=== PATIENT | male | born 1940 | race Caucasian/White ===

== ENCOUNTER 2023-07-19 05:24 | Inpatient (IN) | payer OTHER, SELFPAY ==
[2023-07-19] VITALS (37 sets, daily range): BP systolic 77–112; BP diastolic 45–92; PULSE 69; O2SAT 91; BMI 23.8; BMI 23.0
[2023-07-19 03:04] LABS: % Basophils 0.2 % (0-2); % Eosinophils 3.2 % (0-6); % Immature Granulocytes 0.5 % (0-0.5); % Lymphocytes 4.3 % (20.5-51.1); % Monocytes 2.6 % (1.7-9.3); % Neutrophils 89.2 % (42.2-75.2); Absolute Eosinophils 0.3 10^3/uL (0-0.7); Absolute Lymphocytes 0.4 10^3/uL (1.2-3.4); Absolute Monocytes 0.2 10^3/uL (0.1-0.6); Absolute Neutrophils 7.9 10^3/uL (1.4-6.5); Hematocrit 33.9 % (39.0-52.0); Hemoglobin 10.9 g/dL (13.0-18.0); Mean Corp Hgb Conc. 32.2 g/dL (33.0-37.0); Mean Corpuscular Hgb 28.1 pg (27.0-31.0); Mean Corpuscular Volume 87.4 fL (80.0-94.0); Nucleated Red Blood Cells % 0 % (-); Platelet Count 213 10^3/uL (130-400); Red Blood Cell Count 3.88 10^6/uL (4.70-6.10); Red Cell Dist. Width 15.3 % (11.5-14.5); White Blood Cell Count 8.8 10^3/uL (4.8-10.8)
[2023-07-19 03:05] LABS: Urine Albumin 2+ (Neg - Trace); Urine Bilirubin Negative (Negative); Urine Character Very Cloudy (Clear); Urine Color Yellow; Urine Glucose Negative (Negative); Urine Ketone Trace (Negative); Urine Leukocyte 2+ (Negative); Urine Nitrite Positive (Negative); Urine Occult Blood 4+ (Negative); Urine Urobilinogen Negative (Neg - 1+)
[2023-07-19] MEDS: NSS 1000 IV (03:05)
[2023-07-19 03:18] LABS: Lactic Acid 2.5 mmol/L (0.7-2.0)
--- NOTE | 2023-07-19 03:19 | ED.GENMED ---
History of Present Illness
<ERIC High - Last Filed: 07/19/23 05:05>
General
Chief Complaint: Breathing Problem
Source: patient
Exam Limitations: none
Time Seen by Provider: 07/19/23 03:04
Nursing documentation reviewed up to this point in time: agreed with
Travel History
Have you had any contact with someone who has COVID-19?: No
Do you have any symptoms of coronavirus? Fever > 100 degrees, chills, cough, shortness of breath, sore throat, loss of taste or smell, muscle aches, or headache?: Yes
Symptoms:: fever
History of Present Illness
History of Present Illness:
Pt is an 83 yo male with PMH of COPD, PVD who presents via EMS from [facility] who called due to 'respiratory distress'. Pt has no breathing complaints. His only complaint is that his legs were cramping and he began to panic because he could
not move them around to relieve them. Pt has 2 chronic wounds on his right heel and knee which are being treated at [facility] and he has recently begun taking doxycycline. Upon arrival, pt has fever and wet cough. Pt has no other complaints.
States that he has had burning with urination and that his long-term indwelling catheter has been changed 3 times yesterday to clean it. Denies chest pain, SOB, abdominal pain, constipation, diarrhea, back pain, headache, dizziness, or current leg
pain.
Review of Systems
<ERIC High - Last Filed: 07/19/23 05:05>
Review of Systems
Allergies reviewed?: Yes
All Other Systems: ROS reviewed and negative except as documented in HPI and ROS
Phy Exam
<ERIC High - Last Filed: 07/19/23 05:05>
General Physical Exam
General Presentation: mild distress
General Skin: warm and dry
General Mental: alert
General Hydration: dry mucous membranes
ENT Exam
ENT Exam: pharynx normal, neck supple, normocephalic, lymphnodes and swallowing well
Eye Exam
Eye Exam: PERRL, conjunctiva normal and other (significant goopy discharge which pt states is normal for him)
Cardiovascular Exam
Cardiovascular Exam: regular rate/rhythm, no edema, no gallop, no murmur and normal peripheral pulses
Pulmonary Exam
Pulmonary Exam: no respiratory distress, no crackles, no stridor, no wheezing and other (rhonchi noted throughout)
Cough: productive cough
Gastrointestinal Exam
Gastrointestinal Exam: normal bowel sounds, non tender, soft and non distended
Neurological Exam
Neurological Exam: alert, oriented x3 and speech normal
Skin Exam
Skin Exam: normal color and warm/dry
Psychiatric Exam
Psychiatric Exam: normal mood/affect
Scores
<ERIC High - Last Filed: 07/19/23 05:05>
Heart Failure Risk
Heart Failure Risk Score: Not Applicable
Course
<ERIC High - Last Filed: 07/19/23 05:05>
Orders/Labs/Results
Orders:
Orders
07/19/23 02:39
Electrocardiogram (*1) Urgent
Reason for Study: Other
Other Reason for Exam: Possible Sepsis
Cardiac Monitoring- Treatment ONCE
EKG- Treatment ONCE
IV Insert/Care/Rem.- Treatment PRN
O2 Therapy [RESP] Urgent
Titrate/Wean O2 to maintain O2 sat greater than (%): 93
Special Instructions: TO MAINTAIN CONTINUOUS O2 SATS > OR = 93%
Pulse Ox/cont/shift [RESP] Urgent
Quantity: 1
Special Instructions: CONTINUOUS
07/19/23 02:51
COVID-19 Antigen Urgent
Source: Nasal Swab
Complete Blood Count/With Diff Urgent
Comprehensive Metabolic Panel Urgent
Lactic Acid Q4H
Comment: ON ICE, CANCEL 2ND ORDER IF FIRST LACTIC ACID LEVEL <2
Urinalysis Reflex To Culture Urgent
Date Specimen was Collected: 07/19/23
Time Specimen was Collected: 02:39
Urine Microscopic Reflex Cult Urgent
Blood Culture Q30M
EDER Source: Blood/Venous
Specimen Description:
Comment: FROM 2 SEPARATE SITES
Blood Culture Q30M
EDER Source: Blood/Venous
Specimen Description:
Comment: FROM 2 SEPARATE SITES
Influenza A+B Rapid Molecular Urgent
EDER Source: Nasal Swab
Specimen Description:
Urine Culture Urgent
EDER Source: U
Specimen Description:
Date Specimen was Collected: 07/19/23
Time Specimen was Collected: 02:39
07/19/23 03:04
0.9% Sodium Chloride 1000 ml [Nss] 1,000 ml IV BOLUS
07/19/23 03:11
CXR Port [CR Chest Portable - 1 View] Urgent
Comment:
Reason For Exam: sob
Reason Study Needs to be Portable: Patient Unstable
07/19/23 03:28
0.9% Sodium Chloride 1000 ml [Nss] 1,500 ml IV BOLUS
07/19/23 03:29
Acetaminophen [Tylenol] 650 mg .ROUTE .STK-MED ONE
07/19/23 03:31
Acetaminophen [Tylenol] 650 mg PO NOW STA
07/19/23 04:15
LevoFLOXacin 500 MG/100 ML [Levaquin] 500 mg in 100 ml IV NOW
07/19/23 06:45
Lactic Acid Q4H
Comment: ON ICE, CANCEL 2ND ORDER IF FIRST LACTIC ACID LEVEL <2
Abnormal Lab Results
07/19/23
02:51
RBC 3.88 L 10^6/uL
(4.70-6.10)
Hgb 10.9 L g/dL
(13.0-18.0)
Hct 33.9 L %
(39.0-52.0)
MCHC 32.2 L g/dL
(33.0-37.0)
RDW 15.3 H %
(11.5-14.5)
Absolute Neuts (auto) 7.9 H 10^3/uL
(1.4-6.5)
Absolute Lymphs (auto) 0.4 L 10^3/uL
(1.2-3.4)
Neutrophils % 89.2 H %
(42.2-75.2)
Lymphocytes % 4.3 L %
(20.5-51.1)
BUN 34 H mg/dl
(9-20)
Glucose 102 H mg/dl
(70-99)
Lactic Acid 2.5 H mmol/L
(0.7-2.0)
Alkaline Phosphatase 148 H U/L
(38-126)
Total Protein 6.0 L g/dl
(6.3-8.2)
Albumin 3.1 L g/dl
(3.5-5.0)
Urine Ketones Trace A
(Negative)
Ur Occult Blood Reflex 4+ A
(Negative)
Urine Nitrite (Reflex) Positive A
(Negative)
Leukocyte Esterase Rfl 2+ A
(Negative)
Urine RBC >100 A /HPF
(0-2)
Urine WBC (Reflex) >100 A /HPF
(0-5)
Urine Bacteria (Reflex) Many A
(Negative)
Urine Albumin (Reflex) 2+ A
(Neg - Trace)
07/19/23 02:51
07/19/23 02:51
Vital Signs
Initial and Last Documented VS:
Initial Vital Signs
Resp
24
07/19/23 02:34
Last Documented Vital Signs
Temp Pulse Resp BP Pulse Ox
103.5 F H 95 15 104/53 95
07/19/23 02:40 07/19/23 03:45 07/19/23 03:45 07/19/23 03:30 07/19/23 03:30
<Guadalupe Daniel, DO - Last Filed: 07/19/23 04:24>
Orders/Labs/Results
Orders:
Orders
07/19/23 02:39
Electrocardiogram (*1) Urgent
Reason for Study: Other
Other Reason for Exam: Possible Sepsis
Cardiac Monitoring- Treatment ONCE
EKG- Treatment ONCE
IV Insert/Care/Rem.- Treatment PRN
O2 Therapy [RESP] Urgent
Titrate/Wean O2 to maintain O2 sat greater than (%): 93
Special Instructions: TO MAINTAIN CONTINUOUS O2 SATS > OR = 93%
Pulse Ox/cont/shift [RESP] Urgent
Quantity: 1
Special Instructions: CONTINUOUS
07/19/23 02:51
COVID-19 Antigen Urgent
Source: Nasal Swab
Complete Blood Count/With Diff Urgent
Comprehensive Metabolic Panel Urgent
Lactic Acid Q4H
Comment: ON ICE, CANCEL 2ND ORDER IF FIRST LACTIC ACID LEVEL <2
Urinalysis Reflex To Culture Urgent
Date Specimen was Collected: 07/19/23
Time Specimen was Collected: 02:39
Urine Microscopic Reflex Cult Urgent
Blood Culture Q30M
EDER Source: Blood/Venous
Specimen Description:
Comment: FROM 2 SEPARATE SITES
Blood Culture Q30M
EDER Source: Blood/Venous
Specimen Description:
Comment: FROM 2 SEPARATE SITES
Influenza A+B Rapid Molecular Urgent
EDER Source: Nasal Swab
Specimen Description:
Urine Culture Urgent
EDER Source: U
Specimen Description:
Date Specimen was Collected: 07/19/23
Time Specimen was Collected: 02:39
07/19/23 03:04
0.9% Sodium Chloride 1000 ml [Nss] 1,000 ml IV BOLUS
07/19/23 03:11
CXR Port [CR Chest Portable - 1 View] Urgent
Comment:
Reason For Exam: sob
Reason Study Needs to be Portable: Patient Unstable
07/19/23 03:28
0.9% Sodium Chloride 1000 ml [Nss] 1,500 ml IV BOLUS
07/19/23 03:29
Acetaminophen [Tylenol] 650 mg .ROUTE .STK-MED ONE
07/19/23 03:31
Acetaminophen [Tylenol] 650 mg PO NOW STA
07/19/23 04:15
LevoFLOXacin 500 MG/100 ML [Levaquin] 500 mg in 100 ml IV NOW
07/19/23 06:45
Lactic Acid Q4H
Comment: ON ICE, CANCEL 2ND ORDER IF FIRST LACTIC ACID LEVEL <2
Abnormal Lab Results
07/19/23
02:51
RBC 3.88 L 10^6/uL
(4.70-6.10)
Hgb 10.9 L g/dL
(13.0-18.0)
Hct 33.9 L %
(39.0-52.0)
MCHC 32.2 L g/dL
(33.0-37.0)
RDW 15.3 H %
(11.5-14.5)
Absolute Neuts (auto) 7.9 H 10^3/uL
(1.4-6.5)
Absolute Lymphs (auto) 0.4 L 10^3/uL
(1.2-3.4)
Neutrophils % 89.2 H %
(42.2-75.2)
Lymphocytes % 4.3 L %
(20.5-51.1)
BUN 34 H mg/dl
(9-20)
Glucose 102 H mg/dl
(70-99)
Lactic Acid 2.5 H mmol/L
(0.7-2.0)
Alkaline Phosphatase 148 H U/L
(38-126)
Total Protein 6.0 L g/dl
(6.3-8.2)
Albumin 3.1 L g/dl
(3.5-5.0)
Urine Ketones Trace A
(Negative)
Ur Occult Blood Reflex 4+ A
(Negative)
Urine Nitrite (Reflex) Positive A
(Negative)
Leukocyte Esterase Rfl 2+ A
(Negative)
Urine RBC >100 A /HPF
(0-2)
Urine WBC (Reflex) >100 A /HPF
(0-5)
Urine Bacteria (Reflex) Many A
(Negative)
Urine Albumin (Reflex) 2+ A
(Neg - Trace)
07/19/23 02:51
07/19/23 02:51
Vital Signs
Initial and Last Documented VS:
Initial Vital Signs
Resp
24
07/19/23 02:34
Last Documented Vital Signs
Temp Pulse Resp BP Pulse Ox
103.5 F H 95 15 104/53 95
07/19/23 02:40 07/19/23 03:45 07/19/23 03:45 07/19/23 03:30 07/19/23 03:30
<ERIC High - Last Filed: 07/19/23 05:05>
*Critical Care Note
Total Time (30-74mins, 75-104mins- exclusive of procedures): Not Applicable
<Guadalupe Daniel DO - Last Filed: 07/19/23 04:24>
*Radiology
Radiology exam reviewed: preliminary read by ED provider (Chest x-ray concerning for early right lower lobe infiltrate.)
*Pulse Oximetry
Patient hypoxic: yes
*EKG
Interpreted by ED Provider?: Yes
Interpretation: normal
Comparison EKG: no changes (Unchanged from previous March 2023)
Rate: normal
Rhythm: sinus
[place]: left axis deviation
Interval: normal interval
QRS Pattern: normal QRS
Ischemia: no ischemia (Old inferior Q waves, unchanged from previous.)
*[employer] Interpretation
Rate: normal
Interpretation: normal
Rhythm: sinus
ED Attending Note
<ERIC High - Last Filed: 07/19/23 05:05>
-
Portions of this chart may have been created with voice recognition software.� Occasional wrong word or��sound alike� substitutions may have occurred due to the inherent limitations of voice recognition software.
<Guadalupe Daniel DO - Last Filed: 07/19/23 04:24>
ED Attending Note
Patient seen and examined by attending physician: Yes
I performed the substantive portion of visit, reviewed & personally made and approve the management plan that is documented in note by myself or MARISABEL.: Yes
I performed a history and physical exam of patient and discussed management with resident, I reviewed resident's note and agree with documented findings and plan of care.: Yes
ED Attending Note:
This is an 83-year-old gentleman, chronic resident of [facility]. 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
March 2023 for fever, sepsis thought to be viral syndrome in nature.
He was started on 1 week course of doxycycline July 13 for right knee wound/cellulitis.
He is sent to the ED tonight for acute respiratory distress and upon arrival to the ED he is found to be acutely febrile with rectal temperature over 103 degrees.
He does admit to chronic cough which she attributes to COPD, longstanding history of tobacco use having quit a number of years ago. Cough has worsened over the past several days, occasionally productive of whitish phlegm.
He denies nausea nor vomiting, denies diarrhea or constipation. He has chronic left BKA.
Noted to be mildly to moderately hypoxic upon arrival to the ED. Nasal cannula oxygen initiated.
This is an 83-year-old gentleman who appears somewhat older than stated age, appears mildly chronically debilitated. He is awake and alert, mild respiratory distress. Nasal cannula oxygen in place.
HEENT: Oral mucosa is minimally dry. No rhinorrhea.
Neck is supple, nontender, no meningismus. No adenopathy.
Heart is regular rate and rhythm.
Lungs have coarse rhonchi right base, mild resting tachypnea.
Abdomen is soft, nondistended, nontender. Chronic indwelling Douglas catheter draining suahil cloudy urine.
Extremities: Left BKA stump is dry and intact. There is a 3 cm x 2 cm dry ulcerated wound right lateral foot. Mild local tenderness to palpation. No soft tissue swelling nor surrounding erythema. There is a 2 cm x 2 cm moist ulcerated wound
right anterior knee with minimal surrounding erythema. No soft tissue swelling. Mild local tenderness to palpation.
Neuro: Awake alert and oriented x 3. No focal neurodeficits.
Acute febrile illness, concern for sepsis syndrome. blood pressure is borderline low.
Exam concerning for healthcare associated pneumonia, rhonchi right base. Associated with acute hypoxic respiratory failure requiring supplemental oxygen.
There is also concern for catheter associated UTI as well as right knee chronic wound with cellulitis.
Labs are pending as is chest x-ray.
Will give Tylenol for fever, initiate IV fluid bolus/resuscitation for potential sepsis syndrome.
Patient will likely require IV antibiotics for coverage of potential catheter associated infection, healthcare associated pneumonia.
Records note penicillin allergy, cephalosporin allergy, carbapenem allergy and vancomycin allergy. Will initiate Levaquin.
Patient will require acute hospitalization.
Discharge Plan
Departure
Patient Disposition: Admit
Date of Disposition: 07/19/23
Time of Disposition: 04:18
Admit to: Telemetry
Admit to doctor: Lawrence
Presentation/result/management discussed w/ accepting MD/DO: Hospitalist
Condition: Serious
Discharge Problem:
Sepsis, HCAP (healthcare-associated pneumonia), Catheter-associated urinary tract infection, chronic wound right knee, chronic wound right lateral foot
Prescriptions:
No Action
acetaminophen 325 mg Tablet
650 mg PO Q6H
Rx Instructions:
@0000,0600,1200,1800
acetaminophen 325 mg Tablet
650 mg PO Q4H PRN (Reason: mild pain/fever>100.4)
lidocaine 4 % Adhesive Patch,Medicated
1 patch TOPICAL DAILY
Rx Instructions:
apply to right knee
atorvastatin 10 mg tablet
10 mg PO DAILY@2029
cyanocobalamin (vitamin B-12) [Vitamin B-12] 1,000 mcg Tablet
1,000 mcg PO DAILY
amlodipine 5 mg tablet
5 mg PO DAILY
magnesium hydroxide [Milk of Magnesia] 400 mg/5 mL Suspension
30 ml PO HS PRN (Reason: constipation)
aspirin 325 mg Tablet,Delayed Release (Dr/Ec)
325 mg PO DAILY
bisacodyl [Dulcolax (bisacodyl)] 10 mg Suppository
10 mg [place] DAILY PRN (Reason: if mom ineffective)
ferrous sulfate 325 mg (65 mg iron) Tablet
325 mg PO DAILY
lisinopril 10 mg tablet
10 mg PO DAILY
docusate sodium 100 mg Capsule
200 mg PO DAILY
gabapentin 100 mg Capsule
300 mg PO Q8H
Rx Instructions:
@0000,0800,1600
albuterol sulfate 90 mcg/actuation HFA aerosol inhaler
2 puff INHALATION R Q6 PRN (Reason: sob)
finasteride 5 mg Tablet
5 mg PO DAILY
diclofenac sodium 1 % Gel
2 g TOPICAL QID
Rx Instructions:
@0830,1330,1830,2230. Apply to right knee and right calf
cholecalciferol (vitamin D3) [Vitamin D3] 50 mcg (2,000 unit) Tablet
50 mcg PO DAILY
PreserVision AREDS-2 250-90-40-1 mg Capsule
1 tab PO BID
famotidine 20 mg Tablet
20 mg PO BID Qty: 0 0RF
oxycodone-acetaminophen 5-325 mg tablet
1 tab PO Q6H PRN (Reason: moderate pain) Qty: 5 0RF
Rx Instructions:
attempt to alternate prn percocet with straight order tylenol, so he is receiving something q3h
doxycycline hyclate 100 mg Capsule
100 mg PO BID
Rx Instructions:
7 days, started 07/13/23
Referrals:
Neel Moscoso DO [Family Provider] -
Interventions
Interventions:
*Risk Screen - Suicide Last Done: 07/19/23 02:40
*General Assessment Last Done: 07/19/23 02:40
*Neglect/Abuse Screening Last Done: 07/19/23 02:40
ED- Fall Risk Assessment Last Done: 07/19/23 03:12
*ED COVID-19 Vaccine History Last Done: 07/19/23 02:40
ED- Cardiac Assessment Last Done: 07/19/23 03:12
ED- Pulmonary Assessment Last Done: 07/19/23 03:12
[2023-07-19 03:21] LABS: ALT (SGPT) 17 U/L (0-50); AST (SGOT) 20 U/L (17-59); Albumin 3.1 g/dl (3.5-5.0); Alkaline Phosphatase 148 U/L (38-126); Blood Urea Nitrogen 34 mg/dl (9-20); COVID-19 Antigen Negative (Negative); Carbon Dioxide 23 mmol/L (22-30); Chloride 104 mmol/L (98-107); Estimated Creatinine Clearance 44 ml/min; Glucose 102 mg/dl (70-99); Potassium 4.4 mmol/L (3.5-5.1); Sodium 139 mmol/L (135-145); Total Bilirubin 0.6 mg/dl (0.2-1.3); eGFR 53.84
[2023-07-19 03:28] LABS: Urine Bacteria Many (Negative); Urine Red Blood Cell >100 /HPF (0-2); Urine Squamous Cell 0-2 /LPF (Few); Urine Triple Phosphate Crystal Seen; Urine White Cell >100 /HPF (0-5)
[2023-07-19] MEDS: TYLENOL 650 MG PO ×3 (03:31→14:02)
[2023-07-19] MEDS: NSS 1500 IV (03:32)
--- NOTE | 2023-07-19 04:30 | EDRN ---
Dr. hernadez at bedside working on admission, asked if wren catheter could be changed, new wren placed, brief and linen are dry when doing this, straightened out and tolerated new wren insert
[2023-07-19] MEDS: LEVAQUIN 100 IV (04:37)
--- NOTE | 2023-07-19 05:06 | HPS.HSE ---
Family Physician
-
Family Physician: Neel Moscoso, DO
Chief Complaint
-
SOB
History of Present Illness
Patient is an 83y M with PMH significant for ASCVD / severe PAD, chronic Douglas and COPD who presents to ED for evaluation of 'SOB'. Patient states that she developed shaking chills this evening at the [facility] and this prompted his evaluation. He
notes some cough and SOB - but states they are no different than his usual baseline. Patient denies any abdominal pain, N/V/D, etc. He has a chronic indwelling Douglas which he states was last changed about 2 days ago.
Patient notes that he is chronically incontinent of stool.
He does not use oxygen typically at the [facility].
Patient does note that he has felt somewhat weak for the past 3 days or so - prior to development of shaking chills this evening.
On arrival to the ED, patient is noted to have fever to 103.5.
His BP was initially low but has responded well to volume.
Medical History
Past Medical History
Past Medical History: Reports Other
Additional Past Medical History:
COPD
ASCVD / Severe PAD
Hypertension
Dyslipidemia
Anemia of Chronic Disease
Bladder Cancer
Prostate Cancer
Chronic Pain / Chronic Opioid Dependence
DJD / DDD
Macular Degeneration
Obstructive Uropathy / Chronic Douglas
Past Surgical History: Reports Other
Additional Past Surgical History:
Right Ax-Fem Bypass
Right Fem-Pop Bypass
Lower extremity angiography
Appendectomy
Tonsillectomy
Hernia repair
Social History
Tobacco: Former Smoker (70 years 1 pack/day)
Alcohol: None
Personal:
Living: With Family ([facility]
Employment: Retired
Family History
Family History: Not pertinent
Allergies / Home Medications
Allergies reflects when Allergies were last updated in [facility].
Home Medications with original date entered in [facility]
Allergy/Medication List:
Allergies
Allergy/AdvReac Type Severity Reaction Status Date / Time
cefazolin Allergy Mild Rash Verified 07/19/23 02:43
Carbapenems Allergy Unknown Verified 07/19/23 02:43
Penicillins Allergy Unknown Verified 07/19/23 02:43
vancomycin Allergy Unknown Verified 07/19/23 02:43
Home Medications
acetaminophen 325 mg tablet 650 mg PO Q4H PRN mild pain/fever>100.4 03/31/23
acetaminophen 325 mg tablet 650 mg PO Q6H 03/31/23
albuterol sulfate 90 mcg/actuation aerosol inhaler 2 puff inhalation R Q6 PRN sob 03/31/23
amlodipine 5 mg tablet 5 mg PO DAILY 03/31/23
aspirin 325 mg tablet,delayed release 325 mg PO DAILY 03/31/23
atorvastatin 10 mg tablet 10 mg PO DAILY@202903/31/23
bisacodyl 10 mg rectal suppository (Dulcolax (bisacodyl)) 10 mg [place] DAILY PRN if mom ineffective 03/31/23
cholecalciferol (vitamin D3) 50 mcg (2,000 unit) tablet (Vitamin D3) 50 mcg PO DAILY 03/31/23
cyanocobalamin (vitamin B-12) 1,000 mcg tablet (Vitamin B-12) 1,000 mcg PO DAILY 03/31/23
diclofenac sodium 1 % topical gel 2 g topical QID 03/31/23
docusate sodium 100 mg capsule 200 mg PO DAILY 03/31/23
ferrous sulfate 325 mg (65 mg iron) tablet 325 mg PO DAILY 03/31/23
finasteride 5 mg tablet 5 mg PO DAILY 03/31/23
gabapentin 100 mg capsule 300 mg PO Q8H 03/31/23
lidocaine 4 % topical patch 1 patch topical DAILY 03/31/23
lisinopril 10 mg tablet 10 mg PO DAILY 03/31/23
magnesium hydroxide 400 mg/5 mL oral suspension (Milk of Magnesia) 30 ml PO HS PRN constipation 03/31/23
vit C 250 mg-vit E 90 mg-zinc 40 mg-copper 1 [id number] capsule (PreserVision AREDS-2) 1 tab PO BID 03/31/23
famotidine 20 mg tablet 20 mg PO BID #0 tabs 04/05/23
oxycodone-acetaminophen 5 mg-325 mg tablet 1 tab PO Q6H PRN moderate pain #5 tabs 04/05/23
doxycycline hyclate 100 mg capsule 100 mg PO BID 07/19/23
Review of Systems
-
History Source: Patient
A 12 point ROS was completed and negative except as noted: Yes
Constitutional: Reports Fever, Fatigue and Chills
EENT: Denies Sore Throat
Respiratory: Reports Cough and Trouble Breathing; Denies Hemoptysis
Cardiac: Denies Chest Pain or Palpitations
Abdomen/GI: Reports Other (Incontinent of stool); Denies Abdominal Pain, Nausea, Vomiting or Diarrhea
: Reports Douglas
Musculoskeletal: Reports Joint Pain (R knee and R foot)
Skin: Reports Other (R knee / foot wounds)
Neurological: Denies Dizzy or Headache
Psych: Denies Depression or Anxiety
Physical Exam
Vital Signs
Vital Signs
Temp Pulse Resp BP Pulse Ox
103.5 F H 95 15 104/53 95
07/19/23 02:40 07/19/23 03:45 07/19/23 03:45 07/19/23 03:30 07/19/23 03:30
Physical Exam
General: Other (83y M in no acute distress.)
HEENT: PERRLA and Other (Dry MM.)
Respiratory: Other (Coarse rhonchi at the R baase that do not clear with cough. No wheezing.)
Cardiac: S1/S2 and Regular Rhythm; No Murmur
GI: Soft, Non Tender, Non Distended and Normal Bowel Sounds
Genito-urinary: Other (Douglas in place. 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
Musculoskeletal: Other (L BKA. RLE with 2+ pitting pedal edema. Wound lateral aspect of the R foot without erythema / discharge. Small wound over R patella with minimal surrounding erythema.)
Neuro: AO x 3
Laboratory Results
-
07/19/23 02:51
07/19/23 02:51
Laboratory Results
Lactic Acid 2.5 mmol/L (0.7-2.0) H 07/19/23 02:51
Total Bilirubin 0.6 mg/dl (0.2-1.3) 07/19/23 02:51
AST 20 U/L (17-59) 07/19/23 02:51
ALT 17 U/L (0-50) 07/19/23 02:51
Alkaline Phosphatase 148 U/L (38-126) H 07/19/23 02:51
Impression/Plan
-
A/P: Patient is an 83y M with PMH significant for severe PAD, chronic indwelling Douglas and COPD who presents to ED for evaluation of SOB / chills.
Sepsis
- Admit for further evaluation and treatment.
- Patient presents with fever to 103.5, tachycardia and hypotension.
- Potential sources of infection include pulmonary or (see below).
- BP responding to IVFs in the ED - continue volume support.
- +/- pressors if needed to maintain perfusion.
- IV abx with levofloxacin (multiple reported allergies) pending culture data / clinical changes.
- Supportive care including antipyretics, IVFs, etc.
- Follow for clinical improvement.
COPD without Acute Exacerbation
Suspected RLL Pneumonia
- Patient with evident focal rhonchi over R lower lung medellin on exam.
- CXR is unimpressive - ? if this will change with volume / time.
- IV abx as noted above.
- COVID / Flu negative in the ED.
- Mucolytics, nebs, etc.
- No wheezing is appreciated and will observe off of systemic steroids for now.
- Follow for improvement in pulmonary exam, fever, etc.
- Repeat CXR in 24 hours to assess for any changes.
Chronic Indwelling Douglas
CAUTI
- UA consistent with infection - though not significantly changed from prior urine studies.
- Note that prior cultures have all shown contamination / colonization.
- Douglas exchange in ED today - note that Douglas in place was only in very distal aspect of the urethra with minimal volume in the balloon.
- New Douglas placed for good return of urine.
- IV abx as noted above.
- Follow-up urine culture results.
- Follow for adequate drainage.
RUCHI
- SCr = 1.3 compared to baseline SCr = 0.8.
- Likely secondary to sepsis, hypotension +/- poorly placed Douglas catheter.
- Volume support as noted above.
- Douglas exchanged and functioning well.
- Follow for improvement in renal function / return to baseline.
ASCVD
RLE Wounds
- Severe PAD history s/p L BKA and multiple R sided bypass procedures.
- Wounds over R knee and R foot do not appear acutely infected.
- Wound Care eval for local care recommendations.
- Continue current CV med regimen including full gaitan ASA, statin, etc.
Benign Hypertension
- Currently relatively hypotensive secondary to sepsis.
- Hold amlodipine for now and resume when appropriate.
Chronic Pain Syndrome
Chronic Opioid Dependence
- Stable. Continue Tylenol and oxycodone PRN pain.
- Continue gabapentin.
DVT Prophylaxis: Lovenox
Code Status: Full
--- NOTE | 2023-07-19 05:30 | EDRN ---
Spoke with daughter an updated on plan, patient aware and informed him daughter will be calling as well.
--- NOTE | 2023-07-19 06:25 | EDRN ---
Report to [facility] in ICU
--- NOTE | 2023-07-19 07:26 | PTCARENOTE ---
Pt arrived from ED ~0635 as IMU overflow status. Transferred to bed from stretcher without incidence. CHG bath provided. Connected to hardwire equipment. Unit orientation reviewed and call crowe within reach, safe environment maintained. Report to
oncoming shift RN.
--- NOTE | 2023-07-19 07:30 | PTCARENOTE ---
Received patient from night time nanny RN. Patient is written for IMU status. PAtient is AAOx3, slightly hard of hearing. On 3L nasal cannula, decreased coarse scattered rhonchi auscultated throughout. Wet non productive cough. PAtient is sinus
rhythm in 80s on the monitor. Ordered a regular diet, he has had a poor appetite, abdomen benign, indwelling wren catheter for chronic retention. Patient has multiple wounds on right leg, Right knee, right heel, right lateral foot. All
measured and dressing changed, WOC consult made. Patient has LR infusing into left wrist. Will review orders and complete admission assessment.
[2023-07-19] MEDS: DUONEB 3 ML INH ×4 (07:31→19:28)
[2023-07-19] MEDS: LR 1000 IV ×2 (07:35→15:51)
[2023-07-19] MEDS: NEURONTIN 300 MG PO ×2 (07:36→15:51)
[2023-07-19] MEDS: ASPIRIN ENTERIC COATED 325 MG PO (07:36)
[2023-07-19] MEDS: MUCINEX 600 MG PO ×2 (07:36→20:38)
[2023-07-19] MEDS: ROXICODONE 5 MG PO ×3 (07:46→20:37)
[2023-07-19 08:00] LABS: Lactic Acid 0.7 mmol/L (0.7-2.0)
--- NOTE | 2023-07-19 08:23 | W.PN.HOSP.TC ---
Today's Communication/Plan
-
cont IVF
follow cultures
cont levaquin
PT/OT
Assessment / Plan
Assessment / Plan
pt is an 83 year old male
Sepsis with lactice acidosis (POA)- suspect PNA and UTI as cause--has not needed pressors--responding to IVF--trend lactate--cont levaquin--follow cultures
COPD without Acute Exacerbation but does have acute hypoxemic resp failure (on 3L O2, does not wear at baseline)--no wheezing noted--COVID/Flu negative--Mucolytics, nebs, etc-- consider Repeat CXR in 24 hours to assess for any changes.
Chronic Indwelling Wren with CAUTI--UA consistent with infection--though not significantly changed from prior urine studies--could be colonization as well--pt states he has had the wren since his last admission here, was supposed to have d/c wren
and TOV but apparently this did not happen--Wren exchange in ED on admission--cont levaquin--follow cultures
RUCHI--SCr = 1.3 compared to baseline SCr = 0.8--Likely secondary to sepsis, hypotension +/- poorly placed Wrne catheter--Volume support as noted above--Follow for improvement in renal function / return to baseline.
ASCVD/RLE Wounds (chronic and POA)--Severe PAD history s/p L BKA and multiple R sided bypass procedures--Wounds over R knee and R foot do not appear acutely infected--Wound Care eval for local care recommendations--Continue current CV med regimen
including full gaitan ASA, statin, etc.
EssentialHypertension--Currently relatively hypotensive secondary to sepsis--Hold amlodipine for now and resume when appropriate.
Chronic Pain Syndrome with Chronic Opioid Dependence--Stable--Continue Tylenol and oxycodone PRN pain--Continue gabapentin.
DVT Prophylaxis:� Lovenox
code status -- FULL CODE
Anticipated Discharge: > 48 hours
Subjective/Interval History
-
Date of Service: July 19, 2023
pt feels better ' now that he is here'
Objective Data
-
Labs:
Laboratory Results
07/19/23
02:51
WBC 8.8
Hgb 10.9 L
Hct 33.9 L
Plt Count 213
Sodium 139
Potassium 4.4
Chloride 104
Carbon Dioxide 23
BUN 34 H
Creatinine 1.3
Glucose 102 H
Calcium 9.0
Total Bilirubin 0.6
AST 20
ALT 17
Alkaline Phosphatase 148 H
Vital Signs:
max temp for 24 hours
07/19/23
02:40
Temp 103.5 F H
Vital Signs
Temp Pulse Resp BP Pulse Ox
99.4 F 74 14 90/61 98
07/19/23 06:46 07/19/23 07:34 07/19/23 07:34 07/19/23 07:00 07/19/23 08:14
Review of Systems
-
All other systems: Reviewed and negative
Physical Exam
-
General: Well Developed, Well Nourished and No Apparent Distress
HEENT: Normocephalic, Atraumatic and Oxygen
Respiratory: Rhonchi (bilateral bases)
Cardiac: Regular Rhythm and S1/S2; Negative Murmur
GI: Soft, Nontender, Nondistended and Normal Bowel Sounds
Musculoskeletal: No Clubbing, No Cyanosis, No Edema and Other (left BKA, right knee with bandage, right heel gauze wrapped)
Neuro: Awake and Alert
Psych: Calm
--- NOTE | 2023-07-19 09:02 | CM ---
Patient seen at bedside, sleeping, O2 on. Patient is from [facility], LTC and will return when medically stable. Patient primarily needs assistance with all care and uses a wheelchair per admissions at [facility]. Patient SNF uses [facility], physician is
Dr. Moscoso. CM will continue to follow for discharge planning needs.
Plan; return to SNF; LTC
--- NOTE | 2023-07-19 09:57 | WOUNDNOTE ---
R ANKLE/FOOT (DORSAL)
--- NOTE | 2023-07-19 09:58 | WOUNDNOTE ---
R HEEL/FOOT (LATERAL)
--- NOTE | 2023-07-19 09:58 | WOUNDNOTE ---
R HEEL (POSTERIOR LATERAL)
--- NOTE | 2023-07-19 10:01 | WOUNDNOTE ---
[facility] RN note: Patient admitted with sepsis, suspect pneumonia and UTI. Patient admitted from [facility].
See H&P for complete history. Patient saw Dr. Flanagan in his office 05/25/23.
PMH: COPD, severe PAD, 03/26/23 R axillary to femoral bypass at [facility], RLE bypass 2020, heel and foot ulcers, L BKA, prior stump infection, former smoker, HTN, anemia, bladder and prostate ca, chronic pain (opioids), GI bleed,
arthritis.
Wound Location and type/assessment: Patient admitted with R lateral foot DTI, R lateral heel DTI r/t PAD and pressure. R anterior ankle linear red jerald suspect r/t bijal use and PAD, R posterior heel blanchable red. R knee full thickness ulcer with
brown necrosis and yellow slough, scant pink with local erythema. Sacral/coccyx red with L sacral/buttocks stage 2 pressure injury. + R pedal pulse heard via portable Doppler. 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
Appetite: poor.
Pressure redistribution devices in place: [employer] air bed. Patient turns with assistance. He has contracted R knee and always bends his knee and externally rotates RLE making heel off loading measures difficult.
Plan: Patient incontinent of smear soft brown stool. Patient turned with help from LEX Matt. LEX Matt performed valorie care. Silicone foam applied on sacrum. Dressings changed R heel/foot. R heel off bed with pillow with air chair cushion
on top. Patient declined off loading heel boot (i.e. Foot Waffle).
Will confirm orders with hospitalist and discussed with nurse.
Care plan to be updated and will follow as needed.
Note to case management of equipment requested for discharge: Air mattress at [facility] if not already in place.
Patient to follow up with vascular surgeon after discharge.
Recommend follow up at wound care center upon discharge.
--- NOTE | 2023-07-19 10:28 | WOUNDNOTE ---
[facility] RN note: Patient admitted with sepsis, suspect pneumonia and UTI. Patient admitted from [facility].
See H&P for complete history. Patient saw Dr. Flanagan in his office 05/25/23.
PMH: COPD, severe PAD, 03/26/23 R axillary to femoral bypass at [facility], RLE bypass 2020, heel and foot ulcers, L BKA, prior stump infection, former smoker, HTN, anemia, bladder and prostate ca, chronic pain (opioids), GI bleed,
arthritis.
Wound Location and type/assessment: Patient admitted with R lateral foot DTI, R lateral heel DTI r/t PAD and pressure. R anterior ankle linear red jerald suspect r/t bijal use and PAD, R posterior heel blanchable red. R knee full thickness ulcer with
brown necrosis and yellow slough, scant pink with local erythema. Sacral/coccyx red with L sacral/buttocks stage 2 pressure injury. + R pedal pulse heard via portable Doppler. 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
Appetite: poor.
Pressure redistribution devices in place: [employer]rella [employer]RAGE[employer] air bed. Patient turns with assistance. He has contracted R knee and always bends his knee and externally rotates RLE making heel off loading measures difficult.
Plan: Patient incontinent of smear soft brown stool. Patient turned with help from LEX Matt. LEX Matt performed valorie care. Silicone foam applied on sacrum. Dressings changed R heel/foot. R heel off bed with pillow with air chair cushion
on top. Patient declined off loading heel boot (i.e. Foot Waffle).
Updated Dr. Allen re: appearance of R knee wound, R foot/heel dry gangrene ulcers; defer to hospitalist if R knee Xray to r/t osteomyelitis indicated; Dr. Allen approved local wound care, off loading measures.
Care plan to be updated and will follow as needed.
Note to case management of equipment requested for discharge: Air mattress at [facility] if not already in place.
Patient to follow up with vascular surgeon after discharge.
Recommend follow up at wound care center upon discharge.
--- NOTE | 2023-07-19 12:00 | PTCARENOTE ---
No change in patient's assessment. Have asked Dr. Allen to review chart, patient has multiple foot/heel wounds. Unsure of weight baring status/shoe devices etc that patient will need for safe ambulation. Patient also does not currently have
prosthetic with him.
[2023-07-19] MEDS: LOVENOX 40 MG SC (17:04)
--- NOTE | 2023-07-19 19:30 | PTCARENOTE ---
aaox3. nsr. vss. ngo @ 100cc/hr. wren draining suhail/yellow urine. meatus excoriated. Wren care provided. pt turned and repositioned. francisco 5mg given for r leg pain. pt updated on plan of care. will monitor.
[2023-07-19] MEDS: LIPITOR 10 MG PO (20:38)
[2023-07-20] VITALS (19 sets, daily range): BP systolic 99–129; BP diastolic 48–96; BMI 23.6
[2023-07-20] MEDS: NEURONTIN 300 MG PO ×3 (00:45→16:00)
[2023-07-20] MEDS: ROXICODONE 5 MG PO ×4 (03:00→20:10)
[2023-07-20] MEDS: LR 1000 IV (03:00)
[2023-07-20 04:14] LABS: Hematocrit 28.7 % (39.0-52.0); Hemoglobin 9.2 g/dL (13.0-18.0); Mean Corp Hgb Conc. 32.1 g/dL (33.0-37.0); Mean Corpuscular Hgb 28.7 pg (27.0-31.0); Mean Corpuscular Volume 89.4 fL (80.0-94.0); Mean Platelet Volume 10.5 fL (7.4-10.4); Platelet Count 176 10^3/uL (130-400); Red Blood Cell Count 3.21 10^6/uL (4.70-6.10); Red Cell Dist. Width 15.6 % (11.5-14.5); White Blood Cell Count 5.2 10^3/uL (4.8-10.8)
[2023-07-20 04:51] LABS: ALT (SGPT) 14 U/L (0-50); AST (SGOT) 22 U/L (17-59); Albumin 2.5 g/dl (3.5-5.0); Alkaline Phosphatase 103 U/L (38-126); Blood Urea Nitrogen 24 mg/dl (9-20); Calcium 8.5 mg/dl (8.4-10.2); Carbon Dioxide 20 mmol/L (22-30); Chloride 107 mmol/L (98-107); Direct Bilirubin 0.5 mg/dl (0.0-0.4); Estimated Creatinine Clearance 64 ml/min; Glucose 97 mg/dl (70-99); Potassium 4.5 mmol/L (3.5-5.1); Sodium 137 mmol/L (135-145); Total Bilirubin 0.5 mg/dl (0.2-1.3); Total Protein 5.2 g/dl (6.3-8.2); eGFR > 60.00
[2023-07-20] MEDS: LEVAQUIN 100 IV (05:58)
[2023-07-20] MEDS: DAKIN'S SOLUTION 0.125% 1/4 STRENGTH 473 ML TOPICAL (07:19)
[2023-07-20] MEDS: ASPIRIN ENTERIC COATED 325 MG PO (07:19)
[2023-07-20] MEDS: MUCINEX 600 MG PO ×2 (07:19→19:34)
[2023-07-20] MEDS: SANTYL OINTMENT 1 APPLIC TOPICAL (07:19)
[2023-07-20] MEDS: DUONEB 3 ML INH ×3 (07:43→19:43)
--- NOTE | 2023-07-20 08:00 | PTCARENOTE ---
Received patient from reactor technician. Assessment unchanged. IMU status. AAOx3, forgetful at times. on 3L, coarse rhonchi throughout. SR on monitor. chronic wren and can be incontinent of stool. wounds as documented in worklist. able to make
needs known.
--- NOTE | 2023-07-20 09:24 | W.PN.HOSP.TC ---
Today's Communication/Plan
-
transfer to tele
check MRI right knee and right heel
follow cultures
Assessment / Plan
Assessment / Plan
pt is an 83 year old male
Sepsis with lactic acidosis (POA)- suspect UTI as cause with gm neg bacteremia--has not needed pressors--responding to IVF--trend lactate--cont levaquin--follow cultures
COPD without Acute Exacerbation but does have acute hypoxemic resp failure (on 3L O2, does not wear at baseline)--no wheezing noted--COVID/Flu negative--Mucolytics, nebs, etc--
Chronic Indwelling Wren with CAUTI--UA consistent with infection, blood culture positive for gm neg bacilli---pt states he has had the wren since his last admission here, was supposed to have d/c wren and TOV but apparently this did not
happen--Wren exchanged in ED on admission--cont levaquin--follow cultures
RUCHI--SCr = 1.3 compared to baseline SCr = 0.8, now back at baseline of 0.9--Likely secondary to sepsis, hypotension +/- poorly placed Wren catheter
ASCVD/RLE Wounds (chronic and POA)--Severe PAD history s/p L BKA and multiple R sided bypass procedures--Wounds over R knee and R foot do not appear acutely infected--Wound Care eval for local care recommendations--Continue current CV med regimen
including full gaitan ASA, statin, etc.--check MRI right knee and right foot to r/o osteomyelitis
Essential Hypertension---Hold amlodipine for now and resume when appropriate.
Chronic Pain Syndrome with Chronic Opioid Dependence--Stable--Continue Tylenol and oxycodone PRN pain--Continue gabapentin.
DVT Prophylaxis:� Lovenox
code status -- FULL CODE
Anticipated Discharge: > 48 hours
Subjective/Interval History
-
Date of Service: July 20, 2023
pt without c/o
Objective Data
-
Labs:
Laboratory Results
07/20/23
03:58
WBC 5.2
Hgb 9.2 L
Hct 28.7 L
Plt Count 176
Sodium 137
Potassium 4.5
Chloride 107
Carbon Dioxide 20 L
BUN 24 H
Creatinine 0.9
Glucose 97
Calcium 8.5
Total Bilirubin 0.5
AST 22
ALT 14
Alkaline Phosphatase 103
positive blood culture from 07/19--gm neg bacilli
Vital Signs:
07/20/23
04:00
Temp 98.3 F
Vital Signs
Temp Pulse Resp BP Pulse Ox
98.4 F 73 15 110/52 97
07/20/23 08:08 07/20/23 08:45 07/20/23 08:45 07/20/23 08:00 07/20/23 08:45
I&O
07/19/23 07/20/23 07/21/23
06:59 06:59 06:59
Intake Total 2880 / 2880 100 / 100
Output Total 1200 / 1200 450 / 450
Balance 1680 / 1680 -350 / -350
Review of Systems
-
All other systems: Reviewed and negative
Physical Exam
-
General: Well Developed, Well Nourished and No Apparent Distress
HEENT: Normocephalic and Atraumatic
Respiratory: Clear to Auscultation; Negative Wheezes or Rhonchi
Cardiac: Regular Rhythm and S1/S2; Negative Murmur
GI: Soft, Nontender, Nondistended and Normal Bowel Sounds
Genito-urinary: Wren
Musculoskeletal: No Clubbing, No Cyanosis and No Edema
Skin: Lesions (right knee and right heel)
Neuro: Awake
Psych: Calm
[2023-07-20] MEDS: TYLENOL 650 MG PO ×3 (09:33→20:10)
--- NOTE | 2023-07-20 09:48 | CM ---
Addendum entered by Sylwia Greer 07/20/23 09:54:
watch for possible brace needs
Original Note:
Patient seen at bedside with physician. Patient states he had an MRI but [facility] nurse Nadine did not know of any MRI's scheduled through SNF. Patient unit is A1. Patient has physician at [facility] Dr[facility] Mccall but only Darryl ordered, provided fax
and [facility] to fax to CM report for physician. Plan is for discharge back to [facility] when medically appropriate. will continue to follow for discharge planning needs.
Plan; return to SNF; [facility] LTC
--- NOTE | 2023-07-20 09:57 | PTCARENOTE ---
Patient now written for tele. May go off monitor for testing per Dr. Allen
--- NOTE | 2023-07-20 11:00 | PTCARENOTE ---
Patient transferred to MRI for test off monitor.
[2023-07-20] MEDS: DUONEB INH (11:32)
--- NOTE | 2023-07-20 13:31 | PN.CDI ---
CDI
- -
CDI:
Physician Documentation Request
Admit Date: 07/19/23 05:24
Dear Doctor Tiffany,
Patient admitted with sepsis.
07/20 PN,'ASCVD/RLE Wounds (chronic and POA)--Severe PAD history s/p L BKA and multiple R sided bypass procedures--Wounds over R knee and R foot do not appear acutely infected.
07/19 [facility] note, 'R lateral foot DTI, R lateral heel DTI r/t PAD and pressure. Sacral/coccyx red with L sacral/buttocks stage 2 pressure injury.
Physician documentation of the type and location of wounds is required for compliant documentation. Based on the above clinical findings and your assessment, please provide the following in your progress note:
Type (etiology) of ulcer/wound:
- Arterial (ischemic) ulcer
- Venous stasis ulcer
- Pressure (decubitus) ulcer
- Other
- Unable to determine
For a non-pressure ulcer, please indicate the depth/severity:
- Limited to the breakdown of skin
- With fat layer exposed
- With necrosis of muscle
- With necrosis of bone
- Other
- Unable to determine
For a pressure ulcer, please also include the stage* of the ulcer:
- Stage 1 - Skin intact, non-blanchable redness
- Stage 2 - Partial thickness loss of dermis, includes intact or open blister
- Stage 3 - Full thickness tissue not including bone, tendon or muscle
- Stage 4 - Full thickness tissue loss, including exposed bone, tendon or muscle
- Unstageable - Full thickness loss in which the base of the ulcer is covered by slough (yellow, swanson, haley, green or brown) and/or eschar (swanson, brown or black) in the wound bed.
- Unable to determine
Use of terms such as suspected, likely, concern for, or probable (associated with a specific diagnosis that is being evaluated, monitored, or treated as if it exists) are acceptable and can be coded in the inpatient setting, when documented at the
time of discharge.
Thank you,
Taylor BAUMANN,RN,CCDS
CDI Specialist
Available via [facility] text
Please use your independent medical judgment in providing your response.
*Source: National Pressure Ulcer Advisory Panel (NPUAP)
[2023-07-20] MEDS: LOVENOX 40 MG SC (17:04)
[2023-07-20] MEDS: LIPITOR 10 MG PO (19:34)
[2023-07-21] VITALS (17 sets, daily range): BP systolic 104–148; BP diastolic 48–73; PULSE 57–66; O2SAT 98; BMI 22.8
[2023-07-21] MEDS: ROXICODONE 5 MG PO ×3 (00:08→18:26)
[2023-07-21] MEDS: TYLENOL 650 MG PO ×3 (00:08→18:27)
[2023-07-21] MEDS: NEURONTIN 300 MG PO ×3 (00:08→18:14)
[2023-07-21 04:11] LABS: Hematocrit 29.8 % (39.0-52.0); Hemoglobin 9.7 g/dL (13.0-18.0); Mean Corp Hgb Conc. 32.6 g/dL (33.0-37.0); Mean Corpuscular Hgb 29.6 pg (27.0-31.0); Mean Corpuscular Volume 90.9 fL (80.0-94.0); Mean Platelet Volume 10.5 fL (7.4-10.4); Platelet Count 181 10^3/uL (130-400); Red Blood Cell Count 3.28 10^6/uL (4.70-6.10); Red Cell Dist. Width 15.5 % (11.5-14.5); White Blood Cell Count 5.4 10^3/uL (4.8-10.8)
[2023-07-21] MEDS: SANTYL OINTMENT 1 APPLIC TOPICAL (04:21)
[2023-07-21] MEDS: DAKIN'S SOLUTION 0.125% 1/4 STRENGTH 473 ML TOPICAL (04:21)
--- NOTE | 2023-07-21 04:36 | PTCARENOTE ---
No acute events overnight. Afebrile. Douglas draining clear yellow urine. PRN oxycodone and tylenol given for chronic pain.
[2023-07-21 05:12] LABS: ALT (SGPT) 14 U/L (0-50); AST (SGOT) 19 U/L (17-59); Albumin 2.5 g/dl (3.5-5.0); Alkaline Phosphatase 114 U/L (38-126); Blood Urea Nitrogen 16 mg/dl (9-20); Calcium 8.8 mg/dl (8.4-10.2); Carbon Dioxide 23 mmol/L (22-30); Chloride 105 mmol/L (98-107); Estimated Creatinine Clearance 71 ml/min; Glucose 108 mg/dl (70-99); Magnesium 2.1 mg/dl (1.6-2.3); Potassium 4.4 mmol/L (3.5-5.1); Sodium 137 mmol/L (135-145); Total Bilirubin 0.4 mg/dl (0.2-1.3); Total Protein 5.2 g/dl (6.3-8.2); eGFR > 60.00
[2023-07-21] MEDS: LEVAQUIN 100 IV (06:00)
[2023-07-21] MEDS: DUONEB 3 ML INH ×4 (07:13→19:57)
[2023-07-21] MEDS: MUCINEX 600 MG PO ×2 (07:55→20:58)
[2023-07-21] MEDS: ASPIRIN ENTERIC COATED 325 MG PO (07:55)
--- NOTE | 2023-07-21 09:12 | CM ---
Patient seen at bedside. Patient complaining of leg and for MRI of heel per physician. CM will continue to follow for discharge.
Plan; SNF; LTC
--- NOTE | 2023-07-21 09:21 | W.PN.HOSP.TC ---
Today's Communication/Plan
-
repeat cultures
Assessment / Plan
Assessment / Plan
pt is an 83 year old male
Sepsis with lactic acidosis (POA)- suspect UTI as cause with gm neg Providencia stuartii, will repeat blood cultures until clear, urine culture pending--has not needed pressors-- lactate resolved--cont levaquin--follow cultures
COPD without Acute Exacerbation but does have acute hypoxemic resp failure (on 3L O2, does not wear at baseline)--no wheezing noted--COVID/Flu negative--Mucolytics, nebs, etc--
Chronic Indwelling Wren with CAUTI--suspect UTI as cause with gm neg Providencia stuartii, will repeat blood cultures until clear, urine culture pending----pt states he has had the wren since his last admission here, was supposed to have d/c
wren and TOV but apparently this did not happen--Wren exchanged in ED on admission--cont levaquin--follow cultures
RUCHI--SCr = 1.3 compared to baseline SCr = 0.8, now back at baseline of 0.9--Likely secondary to sepsis, hypotension +/- poorly placed Wren catheter
ASCVD/RLE Wounds (chronic and POA R lateral foot DTI, R lateral heel DTI r/t PAD and pressure. Sacral/coccyx red with L sacral/buttocks stage 2 pressure injury)--Severe PAD history s/p L BKA and multiple R sided bypass procedures--Wounds over R knee
and R foot do not appear acutely infected--Wound Care eval for local care recommendations--Continue current CV med regimen including full gaitan ASA, statin, etc.-- MRI right knee without osteomyelitis
Essential Hypertension---Hold amlodipine for now and resume when appropriate.
Chronic Pain Syndrome with Chronic Opioid Dependence--Stable--Continue Tylenol and oxycodone PRN pain--Continue gabapentin.
DVT Prophylaxis:� Lovenox
code status -- FULL CODE
Anticipated Discharge: > 48 hours
Subjective/Interval History
-
Date of Service: July 21, 2023
pt without c/o
Objective Data
-
Labs:
Laboratory Results
07/21/23
03:42
WBC 5.4
Hgb 9.7 L
Hct 29.8 L
Plt Count 181
Sodium 137
Potassium 4.4
Chloride 105
Carbon Dioxide 23
BUN 16
Creatinine 0.8
Glucose 108 H
Calcium 8.8
Total Bilirubin 0.4
AST 19
ALT 14
Alkaline Phosphatase 114
Vital Signs:
max temp for 24 hours
07/20/23
19:15
Temp 98.0 F
Vital Signs
Temp Pulse Resp BP Pulse Ox
98.5 F 68 18 117/55 97
07/21/23 07:45 07/21/23 08:17 07/21/23 08:17 07/21/23 08:17 07/21/23 08:17
I&O
07/20/23 07/21/23 07/22/23
06:59 06:59 06:59
Intake Total 2880 / 2880 200 / 200 120 / 120
Output Total 1200 / 1200 3350 / 3350
Balance 1680 / 1680 -3150 / -3150 120 / 120
Review of Systems
-
All other systems: Reviewed and negative
Physical Exam
-
General: Well Developed, Well Nourished and No Apparent Distress
HEENT: Normocephalic and Atraumatic
Respiratory: Clear to Auscultation; Negative Wheezes or Rhonchi
Cardiac: Regular Rhythm and S1/S2; Negative Murmur
GI: Soft, Nontender, Nondistended and Normal Bowel Sounds
Musculoskeletal: Other (left BKA and right leg with knee wound, heel wound)
Neuro: Awake
Psych: Calm
--- NOTE | 2023-07-21 10:25 | PTCARENOTE ---
Updated assessment, vital signs ongoing and as documented. Continue with wound care procedures and protocols. Follow up assessment trends, repeat lab cultures as ordered. Follow up with Hospitalist team Dr Allen, into see patient at bedside.
Will follow up new orders, plan of cares, continue telemetry status. Medications via emar with follow up from pharmacy. Update with PT/OT continue to follow along. Teaching and supportive cares ongoing.
--- NOTE | 2023-07-21 13:18 | PTCARENOTE ---
Patient assessment unchanged. Out of bed to chair with PT/OT. Call to update [facility] team plan of transfer. Will update. patient resting comfortable in chair. Pain improved follow up via [facility]. Continue hourly rounds, patient safety checks, call crowe
in use as needed. Continue to update teaching.
--- NOTE | 2023-07-21 16:33 | CON.ID ---
Consultation
-
Date/Time Consultation Requested: 07/21/2023 1350
Date/Time Consultation Performed: 07/21/2023 1630
Requesting Provider: Dr. Allen
Performing Provider: Dr. Keita
Reason for Consultation: Bacteremia
Chief Complaint / Past History
History of Present Illness
Zachary Vela is an 83-year-old man with a significant past medical history of PAD, bladder cancer and chronic Douglas catheter being evaluated at the request of Dr. Allen in regards to bacteremia. History is obtained from chart review, along
with patient interview.
The patient presents to [facility] on 07/19 from [facility] secondary to reported respiratory distress. The patient reports that while he was at the group home developed a fever to 103 degrees. He was found to be febrile also in the
ER and have a cough. He reports that his Douglas catheter has been changed 3 times the day before in order to clean it. At presentation, blood cultures were obtained which are now positive. The patient has multiple antibiotic allergies, and
Infectious Diseases is asked to comment upon further antimicrobial management.
At the present time he denies any fevers or chills. He denies any pain except some discomfort in his right heel where he has a chronic pressure wound.
Past History
Additional Past Medical History:
COPD
PAD
HTN
Dyslipidemia
Chronic anemia
Hx bladder cancer (TURBT and radiation finished may 2022)
Prostate cancer
Chronic pain
GI bleed
Arthritis
Macular degeneration
Additional Past Surgical History:
Right femoral to below-knee arterial bypass (03/26/23; [facility])
TURBT (02/09/22)
Lower extremity angiography
Appendectomy
Tonsillectomy
Hernia repair
Allergy History:
cefazolin Allergy (Mild, Verified 07/19/23 02:43)
Pt reports 'Shaking after anesthesia'; ?Rash
Carbapenems Allergy (Verified 07/19/23 02:43)
Pt does not recall ever receiving one of these drugs
Penicillins Allergy (Verified 07/19/23 02:43)
Pt specifically denies a pcn allergy. Reports tolerating amoxicillin
vancomycin Allergy (Verified 07/19/23 02:43)
Pt unaware of this allergy.
Medications Reviewed: Yes
Current Antibiotics:
Levofloxacin
Social History
Tobacco: Non-Smoker
Alcohol: None
Drug: None
Living: Half-Way
Employment: Retired
Family History
Family History: Not Pertinent
Review of Systems
Vital Signs
Temp Pulse Resp BP Pulse Ox
97.4 F 74 22 117/48 96
07/21/23 15:39 07/21/23 15:39 07/21/23 15:39 07/21/23 15:39 07/21/23 15:39
Physical Exam
Physical Exam
Constitutional: No Acute Distress, Comfortable and Non-toxic
Eyes: No Conjunctival Hemorrhage and Sclera Anicteric
Oral: No Thrush and No Ulcers
Cardiovascular: Regular Rate and S1/S2; Negative S3/S4
Pulmonary: Symmetric, Coarse and Non Labored
Gastrointestinal: Soft, Non Tender and Non Distended
Genito-Urinary: Douglas and Clear Urine; Negative Turbid Urine or Hematuria
Musculoskeletal: Other (Left BKA)
Skin: Warm and Dry; Negative Rash or Jaundice
Neurological: Awake, Alert and Oriented
Psychological: Calm
.
Lab / Diagnostic Study Results
07/21/23 03:42
07/21/23 03:42
Abs Immat Gran (auto) 0.0 10^3/uL (0-0.05) 07/19/23 02:51
Absolute Neuts (auto) 7.9 10^3/uL (1.4-6.5) H 07/19/23 02:51
Absolute Lymphs (auto) 0.4 10^3/uL (1.2-3.4) L 07/19/23 02:51
Absolute Monos (auto) 0.2 10^3/uL (0.1-0.6) 07/19/23 02:51
Absolute Basos (auto) 0.0 10^3/uL (0-0.2) 07/19/23 02:51
Immature Gran % 0.5 % (0-0.5) 07/19/23 02:51
Neutrophils % 89.2 % (42.2-75.2) H 07/19/23 02:51
Lymphocytes % 4.3 % (20.5-51.1) L 07/19/23 02:51
Monocytes % 2.6 % (1.7-9.3) 07/19/23 02:51
Eosinophils % 3.2 % (0-6) 07/19/23 02:51
Basophils % 0.2 % (0-2) 07/19/23 02:51
Lactic Acid 0.7 mmol/L (0.7-2.0) 07/19/23 07:40
Ur Squamous Epith Cells 0-2 /LPF (Few) 07/19/23 02:51
Microbiology Results
Micro:
07/21/23 10:18 Blood Culture - Pending
Blood/Venous
07/21/23 10:13 Blood Culture - Pending
Blood/Venous
07/19/23 02:51 Urine Culture - Preliminary
Urine Gram negative bacilli
07/19/23 02:51 Blood Culture - Preliminary
Blood/Venous Providencia stuartii
Gram Stain - Preliminary
07/19/23 02:51 Blood Culture - Preliminary
Blood/Venous No Growth in 48 hours- Final report to follow
07/19/23 10:15 MRSA Screen - Final
Nose Staph aureus MRSA
07/19/23 02:51 Influenza Types A & B (CARLOS) - Final
Nasal Swab Negative for Influenza A & B, NAAT
Negative results must be combined with clinical observations
and patient history.
Nucleic Acid Amplification test (NAAT)performed on the
[employer] ID NOW platform.
Assessment / Plan
Bacteremia with Providencia stuartii
-Suspect urinary source
Multiple reported antibiotic allergies including PCN, cephalosporins (cefazolin), and vancomycin
Complicated urinary tract infection in patient with chronic Douglas catheter
Normal white count with left shift
COPD
PAD
HTN
Dyslipidemia
Chronic anemia
Hx bladder cancer (TURBT and radiation finished may 2022)
Prostate cancer
Chronic pain
GI bleed
Arthritis
Macular degeneration
Recommendations:
Blood isolate noted to be intermediate to levofloxacin. Other susceptible antibiotics it appears that the patient is reportedly allergic to, although it is not clear if this is valid as the patient reports only an allergy to cefazolin. He does not
recall ever being administered the other antibiotics.
For now, will begin aztreonam 1 g IV every 8 hours.
Repeat blood cultures have been ordered and collected. Will follow to ensure clearance of bacteremia.
I have asked the Microbiology lab to workup the urinary isolate to aztreonam.
[2023-07-21] MEDS: LOVENOX 40 MG SC (18:26)
[2023-07-21] MEDS: STERILE WATER FOR INJECTION 10 ML IV (18:27)
[2023-07-21] MEDS: AZACTAM 1000 MG IV (18:28)
[2023-07-21] MEDS: LIPITOR 10 MG PO (20:58)
[2023-07-22] VITALS (10 sets, daily range): BP systolic 105–150; BP diastolic 52–73
[2023-07-22] MEDS: ROXICODONE 5 MG PO ×5 (00:14→23:43)
[2023-07-22] MEDS: TYLENOL 650 MG PO ×3 (00:14→09:37)
[2023-07-22] MEDS: NEURONTIN 300 MG PO ×4 (00:15→23:42)
[2023-07-22] MEDS: AZACTAM 1000 MG IV ×2 (02:34→09:43)
[2023-07-22] MEDS: STERILE WATER FOR INJECTION 10 ML IV ×2 (02:34→09:44)
[2023-07-22 07:55] LABS: Hematocrit 30.1 % (39.0-52.0); Hemoglobin 9.7 g/dL (13.0-18.0); Mean Corp Hgb Conc. 32.2 g/dL (33.0-37.0); Mean Corpuscular Volume 89.9 fL (80.0-94.0); Mean Platelet Volume 10.6 fL (7.4-10.4); Platelet Count 232 10^3/uL (130-400); Red Blood Cell Count 3.35 10^6/uL (4.70-6.10); Red Cell Dist. Width 15.4 % (11.5-14.5); White Blood Cell Count 5.6 10^3/uL (4.8-10.8)
[2023-07-22] MEDS: DUONEB 3 ML INH ×4 (08:06→20:00)
[2023-07-22 08:27] LABS: ALT (SGPT) 16 U/L (0-50); AST (SGOT) 21 U/L (17-59); Albumin 2.9 g/dl (3.5-5.0); Alkaline Phosphatase 137 U/L (38-126); Blood Urea Nitrogen 11 mg/dl (9-20); Calcium 8.9 mg/dl (8.4-10.2); Carbon Dioxide 24 mmol/L (22-30); Chloride 108 mmol/L (98-107); Estimated Creatinine Clearance 63 ml/min; Glucose 94 mg/dl (70-99); Magnesium 2.1 mg/dl (1.6-2.3); Potassium 4.4 mmol/L (3.5-5.1); Sodium 137 mmol/L (135-145); Total Bilirubin 0.4 mg/dl (0.2-1.3); Total Protein 5.7 g/dl (6.3-8.2); eGFR > 60.00
[2023-07-22] MEDS: ASPIRIN ENTERIC COATED 325 MG PO (09:35)
[2023-07-22] MEDS: MUCINEX 600 MG PO ×2 (09:35→20:01)
[2023-07-22] MEDS: FLUSH (NSS) 2 FLUSH IV (09:46)
[2023-07-22] MEDS: INVANZ 10 ML IV (13:30)
[2023-07-22] MEDS: INVANZ 10 MG IV (13:30)
--- NOTE | 2023-07-22 13:35 | W.PN.ID1 ---
Date of Service
Date of Service: July 22, 2023
Today's Communication
Test dose of ertapenem. See below�
Assessment / Plan
Bacteremia with Providencia stuartii
-Suspect urinary source
Multiple reported antibiotic allergies including PCN, cephalosporins (cefazolin), and vancomycin
Complicated urinary tract infection in patient with chronic Douglas catheter
- Cx's with Proteus mirabilis and Providencia stuartii
Normal white count with left shift
COPD
PAD
HTN
Dyslipidemia
Chronic anemia
Hx bladder cancer (TURBT and radiation finished may 2022)
Prostate cancer
Chronic pain
GI bleed
Arthritis
Macular degeneration
Recommendations:
Blood isolate noted to be intermediate to levofloxacin.
Other susceptible antibiotics it appears that the patient is reportedly allergic to, although it is not clear if this is valid as the patient reports only an allergy to cefazolin.
- He does not recall ever being administered the other listed antibiotics reported as allergies.
Will give test dose of ertapenem. If patient tolerates, would continue with ertapenem 1 g IV every 24 hours to complete 10 days of antibiotics.
Follow repeat blood cultures to confirm clearance.
����������������������������������������������������������
Chief Complaint
-: UTI and Bacteremia
Subjective / Review of Systems
Review of Systems: No Fever and No Chills
Vital Signs / Physical Exam
Vital Signs
Vital Signs
Temp Pulse Resp BP Pulse Ox
97.7 F 67 18 111/52 96
07/22/23 11:46 07/22/23 11:46 07/22/23 11:46 07/22/23 11:46 07/22/23 11:46
Physical Exam
Constitutional: No Acute Distress, Comfortable, Chronically Ill and Non-toxic
Eyes: Sclera Anicteric
Cardiovascular: S1/S2; Negative S3/S4
Pulmonary: Non Labored
Gastrointestinal: Soft, Non Tender, Non Distended and Normal Bowel Sounds
Genito-Urinary: Douglas and Turbid Urine; Negative Suprapubic Tenderness, CVA Tenderness or Hematuria
Extremities: Negative Edema, Cyanosis or Erythema
Neurological: Awake and Alert
Psychological: Calm
Objective Data
Lab Data
Lab Results
07/22/23 06:53
07/22/23 06:53
Estimated Creat Clear 63 ml/min 07/22/23 06:53
Lactic Acid 0.7 mmol/L (0.7-2.0) 07/19/23 07:40
Total Bilirubin 0.4 mg/dl (0.2-1.3) 07/22/23 06:53
AST 21 U/L (17-59) 07/22/23 06:53
ALT 16 U/L (0-50) 07/22/23 06:53
Alkaline Phosphatase 137 U/L (38-126) H 07/22/23 06:53
Most recent labs reviewed.
Micro Results:
07/21/23 10:18 Blood Culture - Preliminary
Blood/Venous No Growth in 24 hours- Final report to follow
07/21/23 10:13 Blood Culture - Preliminary
Blood/Venous No Growth in 24 hours- Final report to follow
07/19/23 02:51 Urine Culture - Final
Urine Proteus mirabilis
Providencia stuartii
07/19/23 02:51 Blood Culture - Preliminary
Blood/Venous Providencia stuartii
Gram Stain - Preliminary
07/19/23 02:51 Blood Culture - Preliminary
Blood/Venous No Growth in 72 hours- Final report to follow
07/19/23 10:15 MRSA Screen - Final
Nose Staph aureus MRSA
07/19/23 02:51 Influenza Types A & B (CARLOS) - Final
Nasal Swab Negative for Influenza A & B, NAAT
Negative results must be combined with clinical observations
and patient history.
Nucleic Acid Amplification test (NAAT)performed on the
[employer] platform.
Care Review
Plan reviewed with: Physician (Hospitalist)
[2023-07-22] MEDS: FLUSH (NSS) 1 FLUSH IV ×2 (13:37→15:32)
--- NOTE | 2023-07-22 13:46 | W.PN.HOSP.TC ---
Today's Communication/Plan
-
waiting for MRI and ID recs: for d/c
Assessment / Plan
Assessment / Plan
pt is an 83 year old male
Sepsis with lactic acidosis (POA)- suspect UTI as cause with Providencia stuartii and Proteus mirabilis--repeat blood cultures negative--apprec ID, Abx as per ID
COPD without Acute Exacerbation but does have acute hypoxemic resp failure (on 3L O2, does not wear at baseline)--no wheezing noted--COVID/Flu negative--Mucolytics, nebs, etc--
Chronic Indwelling Wren with CAUTI- (POA)--suspect UTI as cause with Providencia stuartii and Proteus mirabilis, repeat blood cultures negative---pt states he has had the wren since his last admission here, was supposed to have d/c wren and TOV
but apparently this did not happen--Wren exchanged in ED on admission-follow cultures--as per ID
RUCHI--SCr = 1.3 compared to baseline SCr = 0.8, now back at baseline of 0.9--Likely secondary to sepsis, hypotension +/- poorly placed Wren catheter
ASCVD/RLE Wounds (chronic and POA R lateral foot DTI, R lateral heel DTI r/t PAD and pressure. Sacral/coccyx red with L sacral/buttocks stage 2 pressure injury)--Severe PAD history s/p L BKA and multiple R sided bypass procedures--Wounds over R knee
and R foot do not appear acutely infected--Wound Care eval for local care recommendations--Continue current CV med regimen including full gaitan ASA, statin, etc.-- MRI right knee without osteomyelitis, check MRI right heel/foot
Essential Hypertension---Hold amlodipine for now and resume when appropriate.
Chronic Pain Syndrome with Chronic Opioid Dependence--Stable--Continue Tylenol and oxycodone PRN pain--Continue gabapentin.
DVT Prophylaxis:� Lovenox
code status -- FULL CODE
Anticipated Discharge: 24 - 48 hours
Subjective/Interval History
-
Date of Service: July 22, 2023
pt uses a prosthetic to left leg, equally distributes weight to both legs
Objective Data
-
Labs:
Laboratory Results
07/22/23
06:53
WBC 5.6
Hgb 9.7 L
Hct 30.1 L
Plt Count 232 D
Sodium 137
Potassium 4.4
Chloride 108 H
Carbon Dioxide 24
BUN 11
Creatinine 0.9
Glucose 94
Calcium 8.9
Total Bilirubin 0.4
AST 21
ALT 16
Alkaline Phosphatase 137 H
Vital Signs:
max temp for 24 hours
07/22/23
13:30
Temp 98.5 F
Vital Signs
Temp Pulse Resp BP Pulse Ox
98.5 F 73 16 105/56 95
07/22/23 13:30 07/22/23 13:30 07/22/23 13:30 07/22/23 13:30 07/22/23 13:30
I&O
07/21/23 07/22/23 07/23/23
06:59 06:59 06:59
Intake Total 200 / 200 720 / 720
Output Total 3350 / 3350 1999 / 1999
Balance -3150 / -3150 -1280 / -1280
Review of Systems
-
All other systems: Reviewed and negative
Physical Exam
-
General: Well Developed, Well Nourished and No Apparent Distress
HEENT: Normocephalic and Atraumatic
Respiratory: Clear to Auscultation; Negative Wheezes or Rhonchi
Cardiac: Regular Rhythm and S1/S2; Negative Murmur
GI: Soft, Nontender, Nondistended and Normal Bowel Sounds
Genito-urinary: Wren
Musculoskeletal: No Clubbing, No Cyanosis, No Edema and Other (left BKA--right leg wrapped)
Neuro: Awake
Psych: Calm
[2023-07-22] MEDS: SANTYL OINTMENT 1 APPLIC TOPICAL (13:55)
[2023-07-22] MEDS: DAKIN'S SOLUTION 0.125% 1/4 STRENGTH 1 ML TOPICAL (13:56)
[2023-07-22] MEDS: DESENEX/MITRAZOL/ZEASORB 1 APPLIC TOPICAL (14:04)
--- NOTE | 2023-07-22 14:23 | CM ---
Patient seen at bedside for possible transition back to [facility] tomorrow. CM called to [facility] and updated admissions via VM. CM will send updated clinicals in all script. CM will continue to follow for discharge planning needs.
Plan; return to SNF; [facility]
[2023-07-22] MEDS: INVANZ 60 MG IV (15:32)
--- NOTE | 2023-07-22 16:45 | WOUNDNOTE ---
WOC RN Note: Ivan Anguiano re: patient should be on an air mattress and requested she call retail route supervisor [phone] for an air mattress or consider a waffle air overlay if patient doesn't try to get out of bed/fall risk.
[2023-07-22] MEDS: LOVENOX 40 MG SC (18:28)
[2023-07-22] MEDS: LIPITOR 10 MG PO (20:01)
[2023-07-23 03:55] VITALS: BP 119/63
[2023-07-23] MEDS: ROXICODONE 5 MG PO ×3 (04:20→17:52)
[2023-07-23 07:30] VITALS: BP 124/61
[2023-07-23] MEDS: DUONEB 3 ML INH ×3 (07:37→15:18)
[2023-07-23] MEDS: ASPIRIN ENTERIC COATED 325 MG PO (09:46)
[2023-07-23] MEDS: NEURONTIN 300 MG PO ×2 (09:46→17:47)
[2023-07-23] MEDS: MUCINEX 600 MG PO (09:46)
[2023-07-23 10:12] LABS: Hematocrit 34.6 % (39.0-52.0); Hemoglobin 11.1 g/dL (13.0-18.0); Mean Corp Hgb Conc. 32.1 g/dL (33.0-37.0); Mean Corpuscular Hgb 28.8 pg (27.0-31.0); Mean Corpuscular Volume 89.6 fL (80.0-94.0); Mean Platelet Volume 10.1 fL (7.4-10.4); Platelet Count 266 10^3/uL (130-400); Red Blood Cell Count 3.86 10^6/uL (4.70-6.10); Red Cell Dist. Width 15.5 % (11.5-14.5); White Blood Cell Count 7.6 10^3/uL (4.8-10.8)
[2023-07-23 10:38] LABS: Blood Urea Nitrogen 16 mg/dl (9-20); Calcium 9.2 mg/dl (8.4-10.2); Carbon Dioxide 21 mmol/L (22-30); Chloride 103 mmol/L (98-107); Estimated Creatinine Clearance 71 ml/min; Glucose 104 mg/dl (70-99); Potassium 4.8 mmol/L (3.5-5.1); Sodium 134 mmol/L (135-145); eGFR > 60.00
--- NOTE | 2023-07-23 10:59 | CM ---
Addendum entered by Sylwia Greer 07/23/23 13:25:
Patient from [facility] please call report to [phone]/fax [phone]. CM faxed prescription for IV antibiotics to facility. Patient for transportation via ambulance due to presure injuries and Douglas, for discharge to SNF with IV antibiotics and
wounds on heels, backside and knee, non weight bearing status for right LE. Auth approved by Bridget; [facility] skilled level I 07/23-07/29 # [id number] for 7 days and ambulance auth with Acute care [id number]. CM will continue to follow for discharge
planning needs.
Original Note:
Patient for return to [facility], today with IV antibiotics and Essie at [facility] aware. Bridget for auth and plan is to return to SNF as early as possible today when PICC placed. CM will continue to follow for discharge planning needs.
Plan; return to [facility] today with IV antibiotics.
--- NOTE | 2023-07-23 11:00 | WOUNDNOTE ---
WOC RN note: Spoke with RN Merced Anguiano who confirmed patient is on a Waffle air overlay.
--- NOTE | 2023-07-23 12:10 | W.PN.HOSP.TC ---
Today's Communication/Plan
-
d/c
Assessment / Plan
Assessment / Plan
pt is an 83 year old male
Sepsis with lactic acidosis (POA)- suspect UTI as cause with Providencia stuartii and Proteus mirabilis--repeat blood cultures negative--apprec ID, Abx as per ID
COPD without Acute Exacerbation but does have acute hypoxemic resp failure (on 3L O2, does not wear at baseline)--no wheezing noted--COVID/Flu negative--Mucolytics, nebs, etc--
Chronic Indwelling Wren with CAUTI- (POA)--suspect UTI as cause with Providencia stuartii and Proteus mirabilis, repeat blood cultures negative---pt states he has had the wren since his last admission here, was supposed to have d/c wren and TOV
but apparently this did not happen--Wren exchanged in ED on admission-follow cultures--6 weeks IV ABX with PICC per ID
RUCHI--SCr = 1.3 compared to baseline SCr = 0.8, now back at baseline of 0.9--Likely secondary to sepsis, hypotension +/- poorly placed Wren catheter
ASCVD/RLE Wounds (chronic and POA R lateral foot DTI, R lateral heel DTI r/t PAD and pressure. Sacral/coccyx red with L sacral/buttocks stage 2 pressure injury)--Severe PAD history s/p L BKA and multiple R sided bypass procedures--Wounds over R knee
and R foot do not appear acutely infected--Wound Care eval for local care recommendations--Continue current CV med regimen including full gaitan ASA, statin, etc.-- MRI right knee without osteomyelitis, MRI right heel/foot also without osteomyelitis
Essential Hypertension---Hold amlodipine for now and resume when appropriate.
Chronic Pain Syndrome with Chronic Opioid Dependence--Stable--Continue Tylenol and oxycodone PRN pain--Continue gabapentin.
DVT Prophylaxis:� Lovenox
code status -- FULL CODE
Anticipated Discharge: Today
Subjective/Interval History
-
Date of Service: July 23, 2023
pt ready for d/c
Objective Data
-
Labs:
Laboratory Results
07/23/23
10:02
WBC 7.6
Hgb 11.1 L
Hct 34.6 L
Plt Count 266
Sodium 134 L
Potassium 4.8
Chloride 103
Carbon Dioxide 21 L
BUN 16
Creatinine 0.8
Glucose 104 H
Calcium 9.2
Vital Signs:
max temp for 24 hours
07/23/23
03:55
Temp 98.7 F
Vital Signs
Temp Pulse Resp BP Pulse Ox
98.8 F 65 18 124/61 95
07/23/23 07:30 07/23/23 11:36 07/23/23 11:36 07/23/23 07:30 07/23/23 11:36
I&O
07/22/23 07/23/23 07/24/23
06:59 06:59 06:59
Intake Total 720 / 720 780 / 780
Output Total 1999 / 1999 2150 / 2150
Balance -1280 / -1280 -1370 / -1370
Review of Systems
-
All other systems: Reviewed and negative
Physical Exam
-
General: Well Developed, Well Nourished and No Apparent Distress
HEENT: Normocephalic and Atraumatic; Negative Oxygen
Respiratory: Clear to Auscultation; Negative Wheezes or Rhonchi
Cardiac: Regular Rhythm and S1/S2; Negative Murmur
GI: Soft, Nontender, Nondistended and Normal Bowel Sounds
Musculoskeletal: No Clubbing, No Cyanosis and No Edema
Neuro: Awake
Psych: Calm
[2023-07-23] MEDS: INVANZ 60 MG IV (12:20)
[2023-07-23] MEDS: SANTYL OINTMENT 1 APPLIC TOPICAL (13:16)
[2023-07-23] MEDS: DAKIN'S SOLUTION 0.125% 1/4 STRENGTH 1 ML TOPICAL (13:16)
--- NOTE | 2023-07-23 14:15 | W.DCSUMMARY ---
Discharge Summary
Discharge Data
Date of Admission: 07/19/23
Date of Discharge: 07/23/23
-
Pending Results: No
Hospital Course
Primary care physician : Neel Moscoso
Principal Discharge diagnosis : Sepsis with lactic acidosis due to suspected urinary tract infection, chronic right lower extremity wounds
Chronic Discharge diagnosis : Chronic obstructive pulmonary disease without exacerbation, chronic indwelling Douglas catheter, acute kidney injury, essential hypertension, chronic pain syndrome with chronic opioid dependence
Hospital Course : Patient was an 83-year-old male who presented with complaints of shortness of breath. He developed shaking chills on the evening at the assisted. He noted cough and shortness of breath. He did state however they are no
different than his usual baseline. He does not typically use oxygen at the assisted. Patient noted that he felt weak for the past 3 days or so prior to admission. He has a chronic indwelling Douglas catheter which was changed 2 days prior to
admission. In the emergency department, fever was noted to be 103.5. Blood pressure was low but responded to fluids and the patient was admitted.
Problem #1: Sepsis with lactic acidosis due to suspected urinary tract infection. This was suspected due to a catheter associated urinary tract infection as the patient has a chronic Douglas catheter and urine cultures were positive for Providencia
stuartii and Proteus mirabilis. Blood culture was positive for Providencia stuartii I. Repeat blood cultures were negative. Infectious disease was consulted. Given patient's allergy history, test dose of ertapenem was given. Patient tolerated
well and will be on 10 more days of IV antibiotics per infectious disease. Midline being placed.
Problem #2: Chronic right lower extremity wounds. MRI of the right knee did not show any osteomyelitis. MRI of the right heel also was without any osteomyelitis. Patient had a left BKA and multiple right-sided bypass procedures. He was seen in
consultation by physical therapy and Occupational Therapy. He was seen in consultation by wound care. Patient had a right lateral foot deep tissue injury and a right lateral heel deep tissue injury and a sacral/coccyx left sacral buttock stage II
pressure injury. All wounds were present on admission. There were no signs of any active infections with these wounds.
Problem #3: All other medical issues. These include Chronic obstructive pulmonary disease without exacerbation, chronic indwelling Douglas catheter, acute kidney injury, essential hypertension, chronic pain syndrome with chronic opioid dependence.
These medical issues were stable during his hospitalization. Medications were continued as able.
Patient is stable for discharge back to his assisted at this time. If there are any questions regarding this dictation or his hospital stay, please not hesitate to call. Our office number is [phone].
Time for discharge 32 minutes.
Discharge Plan
-
Patient Disposition: Care Home/SNF
Discharge Diagnosis/Procedures: Sepsis with lactic acidosis due to Providencia stuartii and Proteus mirabilis urinary tract infection from chronic indwelling Douglas catheter, chronic obstructive pulmonary disease without exacerbation, acute kidney
injury resolved, right lower extremity wounds chronic and present on admission (right lateral foot DTI, right lateral heel DTI, sacrum/coccyx with stage II pressure injury), essential hypertension, chronic pain syndrome with chronic opioid
dependence
Condition: Good
Diet: As tolerated and Regular
Activity: As tolerated
Driving Restrictions: As prior to admission
Bathing Restrictions: None
Activity Restrictions/Additional Instructions:
Wound Care Instructions
R lateral heel, R lateral foot dry gangrene ulcers-swab with Betadine, cover with ABD pad, secure with stockinet (i.e. Spandage), change daily and prn loosened dressing.
R knee ulcer-clean with 1/4 strength Dakin's solution, Santyl ointment, adaptic, silicone border foam, change daily (add alginate after adaptic prn large amount of drainage).
Sacral/buttocks-clean with saline or soap and water, silicone border foam, change q 2 days and prn soilage. If foam ineffective, apply zinc barrier (i.e. Calazime) TID instead.
Miconazole powder bid prn yeasty red skin.
Air mattress
Elevate heel off bed with pillow with air chair cushion on top.
Pressure redistributing chair cushion (i.e. air, Roho).
Follow up with vascular surgeon (i.e. Dr. Flanagan or [facility]'s vascular surgeon).
Follow up with wound animal care giver or at wound care center call for an appointment.
Referrals:
Neel Moscoso, [Family Provider] - in less than 1 week
Prescriptions:
New
Dakin's Solution 0.125 % Solution
1 applic topical DAILY Qty: 0 0RF
Ertapenem [Invanz] 1000 MG
0.9% Sodium Chloride [Nss] 50 ML
120 mls/hr IV DAILY@1200
Ordered By: Sarah Allen MD
Last Taken: 07/23/23 12:20 60 mls
oxycodone 5 mg Tablet
5 mg PO Q4HPRN PRN (Reason: Moderate Pain) Qty: 7 0RF
miconazole nitrate [Miconazorb AF] 2 % Powder
1 applic topical BIDPRN PRN (Reason: yeasty red skin) Qty: 0 0RF
Santyl 250 unit/gram Ointment
1 applic topical DAILY Qty: 0 0RF
Continued
acetaminophen 325 mg Tablet
650 mg PO Q6H
Rx Instructions:
@0000,0600,1200,1800
acetaminophen 325 mg Tablet
650 mg PO Q4H PRN (Reason: mild pain/fever>100.4)
lidocaine 4 % Adhesive Patch,Medicated
1 patch TOPICAL DAILY
Rx Instructions:
apply to right knee
atorvastatin 10 mg tablet
10 mg PO DAILY@2029
cyanocobalamin (vitamin B-12) [Vitamin B-12] 1,000 mcg Tablet
1,000 mcg PO DAILY
amlodipine 5 mg tablet
5 mg PO DAILY
magnesium hydroxide [Milk of Magnesia] 400 mg/5 mL Suspension
30 ml PO HS PRN (Reason: constipation)
aspirin 325 mg Tablet,Delayed Release (Dr/Ec)
325 mg PO DAILY
bisacodyl [Dulcolax (bisacodyl)] 10 mg Suppository
10 mg CA DAILY PRN (Reason: if mom ineffective)
ferrous sulfate 325 mg (65 mg iron) Tablet
325 mg PO DAILY
lisinopril 10 mg tablet
10 mg PO DAILY
docusate sodium 100 mg Capsule
200 mg PO DAILY
gabapentin 100 mg Capsule
300 mg PO Q8H
Rx Instructions:
@0000,0800,1600
albuterol sulfate 90 mcg/actuation HFA aerosol inhaler
2 puff INHALATION R Q6 PRN (Reason: sob)
finasteride 5 mg Tablet
5 mg PO DAILY
diclofenac sodium 1 % Gel
2 g TOPICAL QID
Rx Instructions:
@0830,1330,1830,2230. Apply to right knee and right calf
cholecalciferol (vitamin D3) [Vitamin D3] 50 mcg (2,000 unit) Tablet
50 mcg PO DAILY
PreserVision AREDS-2 250-90-40-1 mg Capsule
1 tab PO BID
famotidine 20 mg Tablet
20 mg PO BID Qty: 0 0RF
Discontinued
oxycodone-acetaminophen 5-325 mg tablet
1 tab PO Q6H PRN (Reason: moderate pain) Qty: 5 0RF
Rx Instructions:
attempt to alternate prn percocet with straight order tylenol, so he is receiving something q3h
doxycycline hyclate 100 mg Capsule
100 mg PO BID
Rx Instructions:
7 days, started 07/13/23
Discharge Orders:
Discharge Patient (As Directed); Ordered 07/23/23
Ordered By: Sarah Allen
[2023-07-23 15:32] VITALS: BP 110/56
[2023-07-23] MEDS: LOVENOX 40 MG SC (17:47)
== END 2023-07-23 18:51 | DRG 698 ==
LOC: 4 WEST ACU 05:24
PROVIDERS: ADMITTING PHYSICIAN Hospitalist; ATTENDING PHYSICIAN Internal Medicine; EMERGENCY PHYSICIAN Emergency Medicine; FAMILY PHYSICIAN Student in an Organized Health Care Education/Training Program
DX: T83.511A Infection and inflammatory reaction due to indwelling urethral catheter, initial encounter (principal); A41.59 Other Gram-negative sepsis; J96.01 Acute respiratory failure with hypoxia; F11.20 Opioid dependence, uncomplicated; N17.9 Acute kidney failure, unspecified; E87.20 Acidosis, unspecified; N39.0 Urinary tract infection, site not specified; I73.9 Peripheral vascular disease, unspecified; J44.9 Chronic obstructive pulmonary disease, unspecified; Y84.6 Urinary catheterization as the cause of abnormal reaction of the patient, or of later complication, without mention of misadventure at the time of the procedure; I25.10 Atherosclerotic heart disease of native coronary artery without angina pectoris; R15.9 Full incontinence of feces; I10 Essential (primary) hypertension; L89.152 Pressure ulcer of sacral region, stage 2; E78.5 Hyperlipidemia, unspecified; D63.8 Anemia in other chronic diseases classified elsewhere; G89.4 Chronic pain syndrome; M19.90 Unspecified osteoarthritis, unspecified site; L89.616 Pressure-induced deep tissue damage of right heel; L89.896 Pressure-induced deep tissue damage of other site; H35.30 Unspecified macular degeneration; N13.9 Obstructive and reflux uropathy, unspecified; I95.9 Hypotension, unspecified; Z87.891 Personal history of nicotine dependence; Z89.512 Acquired absence of left leg below knee; Z11.52 Encounter for screening for COVID-19; Z88.0 Allergy status to penicillin; Z88.1 Allergy status to other antibiotic agents; Z85.51 Personal history of malignant neoplasm of bladder; Z85.46 Personal history of malignant neoplasm of prostate
CPT/HCPCS: 71045; 71046; 73723; 80048; 80053; 81003; 81015; 82248; 83605; 83735; 85025; 85027; 87040; 87070; 87077; 87086; 87147; 87186; 87205; 87502; 87811; 93005; 94640; 94667; 94668; 96361; 96365; 97163; 97166; 97530; 99285; A9575; J1335

== ENCOUNTER → 2023-09-06 09:17 | Outpatient (REF) | payer OTHER, SELFPAY ==
[2023-09-06 10:35] LABS: ALT (SGPT) < 10 U/L (0-50); AST (SGOT) 16 U/L (17-59); Albumin 3.2 g/dl (3.5-5.0); Alkaline Phosphatase 105 U/L (38-126); Blood Urea Nitrogen 33 mg/dl (9-20); Calcium 8.6 mg/dl (8.4-10.2); Carbon Dioxide 23 mmol/L (22-30); Chloride 110 mmol/L (98-107); Glucose 76 mg/dl (70-99); Potassium 4.3 mmol/L (3.5-5.1); Sodium 137 mmol/L (135-145); Total Bilirubin 0.4 mg/dl (0.2-1.3); Total Protein 6.1 g/dl (6.3-8.2); eGFR > 60.00
== END ==
LOC: OLABN 09:17
PROVIDERS: ATTENDING PHYSICIAN Student in an Organized Health Care Education/Training Program
DX: I10 Essential (primary) hypertension (principal)
CPT/HCPCS: 36415; 80053

== ENCOUNTER → 2023-09-15 09:03 | Outpatient (REF) | payer OTHER, SELFPAY | LOC: HWRAD 09:03 | PROVIDERS: ATTENDING PHYSICIAN Student in an Organized Health Care Education/Training Program; REFERRING PHYSICIAN Surgery Vascular Surgery | DX: I73.9 Peripheral vascular disease, unspecified (principal) | CPT/HCPCS: 75635; Q9967 ==

== ENCOUNTER → 2023-11-04 00:15 | Outpatient (REF) | payer OTHER, SELFPAY ==
[2023-11-04 12:49] LABS: Urine Albumin 1+ (Neg - Trace); Urine Bilirubin Negative (Negative); Urine Character Slightly Cloudy (Clear); Urine Color Yellow; Urine Glucose Negative (Negative); Urine Ketone Negative (Negative); Urine Leukocyte 2+ (Negative); Urine Nitrite Positive (Negative); Urine Occult Blood 4+ (Negative); Urine Urobilinogen Negative (Neg - 1+)
[2023-11-04 12:58] LABS: Urine Bacteria Few (Negative); Urine Squamous Cell 0-2 /LPF (Few); Urine White Cell 50-60 /HPF (0-5)
== END ==
LOC: OLABN 00:15
PROVIDERS: ATTENDING PHYSICIAN Student in an Organized Health Care Education/Training Program
DX: R31.9 Hematuria, unspecified (principal)
CPT/HCPCS: 81003; 81015; 87086

== ENCOUNTER → 2023-12-03 10:15 | Outpatient (REF) | payer OTHER, SELFPAY | LOC: RAD 10:15 | PROVIDERS: ATTENDING PHYSICIAN Student in an Organized Health Care Education/Training Program | DX: Z85.46 Personal history of malignant neoplasm of prostate (principal); C67.1 Malignant neoplasm of dome of bladder | CPT/HCPCS: 71260; 74177; Q9967 ==

== ENCOUNTER → 2023-12-20 10:34 | Outpatient (REF) | payer OTHER, SELFPAY ==
[2023-12-20 11:26] LABS: % Basophils 0.4 % (0-2); % Eosinophils 3.6 % (0-6); % Immature Granulocytes 0.7 % (0-0.5); % Lymphocytes 14.2 % (20.5-51.1); % Monocytes 10.7 % (1.7-9.3); % Neutrophils 70.4 % (42.2-75.2); Absolute Eosinophils 0.3 10^3/uL (0-0.7); Absolute Immature Granulocytes 0.1 10^3/uL (0-0.05); Absolute Monocytes 0.8 10^3/uL (0.1-0.6); Absolute Neutrophils 5.1 10^3/uL (1.4-6.5); Hematocrit 33.1 % (39.0-52.0); Hemoglobin 10.6 g/dL (13.0-18.0); Mean Corpuscular Volume 90.7 fL (80.0-94.0); Mean Platelet Volume 10.6 fL (7.4-10.4); Nucleated Red Blood Cells % 0 % (-); Platelet Count 214 10^3/uL (130-400); Red Blood Cell Count 3.65 10^6/uL (4.70-6.10); Red Cell Dist. Width 13.8 % (11.5-14.5); White Blood Cell Count 7.2 10^3/uL (4.8-10.8)
[2023-12-20 11:35] LABS: ALT (SGPT) 15 U/L (0-50); AST (SGOT) 17 U/L (17-59); Albumin 3.2 g/dl (3.5-5.0); Alkaline Phosphatase 117 U/L (38-126); Blood Urea Nitrogen 26 mg/dl (9-20); Calcium 8.9 mg/dl (8.4-10.2); Carbon Dioxide 23 mmol/L (22-30); Chloride 106 mmol/L (98-107); Glucose 88 mg/dl (70-99); Potassium 4.1 mmol/L (3.5-5.1); Sodium 138 mmol/L (135-145); Total Bilirubin 0.4 mg/dl (0.2-1.3); eGFR > 60.00
== END ==
LOC: OLABN 10:34
PROVIDERS: ATTENDING PHYSICIAN Student in an Organized Health Care Education/Training Program
DX: I10 Essential (primary) hypertension (principal); D64.9 Anemia, unspecified
CPT/HCPCS: 36415; 80053; 85025

== ENCOUNTER → 2024-01-07 09:19 | Outpatient (REF) | payer OTHER, SELFPAY ==
[2024-01-07 12:51] LABS: Blood Urea Nitrogen 34 mg/dl (9-20)
== END ==
LOC: OLABN 09:19
PROVIDERS: ATTENDING PHYSICIAN Student in an Organized Health Care Education/Training Program
DX: I10 Essential (primary) hypertension (principal); C67.1 Malignant neoplasm of dome of bladder
CPT/HCPCS: 84520

== ENCOUNTER → 2024-01-10 10:58 | Outpatient (REF) | payer OTHER, SELFPAY | LOC: RAD 10:58 | PROVIDERS: ATTENDING PHYSICIAN Student in an Organized Health Care Education/Training Program | DX: C67.1 Malignant neoplasm of dome of bladder (principal) | CPT/HCPCS: 71260; 74178; Q9967 ==

== ENCOUNTER → 2024-01-18 12:42 | Outpatient (REF) | payer OTHER, SELFPAY | LOC: DHVS 12:42 | PROVIDERS: ATTENDING PHYSICIAN Registered Nurse; FAMILY PHYSICIAN Student in an Organized Health Care Education/Training Program | DX: I73.9 Peripheral vascular disease, unspecified (principal) | CPT/HCPCS: 93922; 93925 ==

== ENCOUNTER → 2024-01-29 08:06 | Outpatient (REF) | payer OTHER, SELFPAY ==
[2024-01-29 11:18] LABS: % Basophils 0.3 % (0-2); % Eosinophils 3.7 % (0-6); % Immature Granulocytes 0.5 % (0-0.5); % Lymphocytes 16.8 % (20.5-51.1); % Monocytes 12.5 % (1.7-9.3); % Neutrophils 66.2 % (42.2-75.2); Absolute Eosinophils 0.2 10^3/uL (0-0.7); Absolute Monocytes 0.7 10^3/uL (0.1-0.6); Absolute Neutrophils 3.9 10^3/uL (1.4-6.5); Hematocrit 34.1 % (39.0-52.0); Hemoglobin 10.9 g/dL (13.0-18.0); Mean Corpuscular Hgb 29.4 pg (27.0-31.0); Mean Corpuscular Volume 91.9 fL (80.0-94.0); Mean Platelet Volume 10.7 fL (7.4-10.4); Nucleated Red Blood Cells % 0 % (-); Platelet Count 196 10^3/uL (130-400); Red Blood Cell Count 3.71 10^6/uL (4.70-6.10); Red Cell Dist. Width 15.3 % (11.5-14.5); White Blood Cell Count 5.9 10^3/uL (4.8-10.8)
[2024-01-29 11:29] LABS: ALT (SGPT) < 10 U/L (0-50); AST (SGOT) 13 U/L (17-59); Albumin 3.4 g/dl (3.5-5.0); Alkaline Phosphatase 95 U/L (38-126); Blood Urea Nitrogen 30 mg/dl (9-20); Calcium 9.4 mg/dl (8.4-10.2); Carbon Dioxide 23 mmol/L (22-30); Chloride 110 mmol/L (98-107); Glucose 87 mg/dl (70-99); Potassium 4.3 mmol/L (3.5-5.1); Sodium 139 mmol/L (135-145); Total Bilirubin 0.4 mg/dl (0.2-1.3); eGFR > 60.00
[2024-01-29 11:37] LABS: NT-proBNP 348 pg/ml
== END ==
LOC: OLABN 08:06
PROVIDERS: ATTENDING PHYSICIAN Student in an Organized Health Care Education/Training Program
DX: J44.9 Chronic obstructive pulmonary disease, unspecified (principal)
CPT/HCPCS: 36415; 80053; 83735; 83880; 85025

== ENCOUNTER 2024-02-08 16:29 | Emergency (ER) | payer OTHER, SELFPAY ==
[2024-02-08 16:31] VITALS: BP 143/69
[2024-02-08 16:35] VITALS: BP 143/69
[2024-02-08 17:00] VITALS: BP 145/70
[2024-02-08 17:03] LABS: Urine Albumin Trace (Neg - Trace); Urine Bilirubin Negative (Negative); Urine Character Clear (Clear); Urine Color Yellow; Urine Glucose Negative (Negative); Urine Ketone Negative (Negative); Urine Leukocyte 2+ (Negative); Urine Nitrite Negative (Negative); Urine Occult Blood 4+ (Negative); Urine Urobilinogen Negative (Neg - 1+)
[2024-02-08 17:32] LABS: Urine Bacteria Few (Negative); Urine Red Blood Cell 90-100 /HPF (0-2)
--- NOTE | 2024-02-08 17:36 | ED.GENMED ---
History of Present Illness
General
Chief Complaint: Catheter/Tube Problem
Time Seen by Provider: 02/08/24 16:56
History of Present Illness
History of Present Illness:
83-year-old male presents to the emergency department for evaluation of a dislodged Douglas catheter. Douglas catheter was dislodged unintentionally by the patient and the staff was unable to replace it. 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
retention
Review of Systems
Review of Systems
Allergies reviewed?: Yes
All Other Systems: ROS reviewed and negative except as documented in HPI and ROS
Phy Exam
Physical Exam
Physical Exam:
GEN: Well appearing, NAD, WDWN
HEENT: Oral mucosa moist, no scleral icterus
Cardiac: Regular rate
Lung: No respiratory distress, no tachypnea
MSK: No gross deformity or injuries
Skin: Good color, no pallor or jaundice, no rashes
Neuro: AO x3, moves all extremities freely
Psych: Calm, cooperative
Course
Orders/Labs/Results
Orders:
Orders
02/08/24 16:53
Urinalysis Reflex To Culture Urgent
Date Specimen was Collected: 02/08/24
Time Specimen was Collected: 16:38
Urine Microscopic Reflex Cult Urgent
Urine Culture Urgent
EDER Source: U
Specimen Description:
Date Specimen was Collected: 02/08/24
Time Specimen was Collected: 16:38
02/08/24 18:39
Ertapenem [Invanz] 1,000 mg 0.9% Sodium Chloride [Nss] 50 ml IV NOW
Abnormal Lab Results
02/08/24
16:53
Ur Occult Blood Reflex 4+ A
(Negative)
Leukocyte Esterase Rfl 2+ A
(Negative)
Urine RBC 90-100 A /HPF
(0-2)
Urine Bacteria (Reflex) Few A
(Negative)
Vital Signs
Initial and Last Documented VS:
Initial Vital Signs
BP
143/69
02/08/24 16:31
Last Documented Vital Signs
Temp Pulse Resp BP Pulse Ox
97.9 F 60 18 145/70 99
02/08/24 16:35 02/08/24 16:35 02/08/24 16:35 02/08/24 17:00 02/08/24 17:15
MDM/Problems Addressed
MDM/Problems Addressed:
Urology had to be consulted for Douglas placement due to a urethral stricture. Ultimately the Douglas was able to be placed. 1 dose of IV antibiotics given his procedural prophylaxis. Patient will follow-up as an outpatient with urology to discuss
suprapubic in the future
*Critical Care Note
Total Time (30-74mins, 75-104mins- exclusive of procedures): Not Applicable
ED Attending Note
-
Portions of this chart may have been created with voice recognition software.� Occasional wrong word or��sound alike� substitutions may have occurred due to the inherent limitations of voice recognition software.
Discharge Plan
Departure
Patient Disposition: Home (Routine Discharge)
Date of Disposition: 02/08/24
Time of Disposition: 18:21
Patient with high blood pressure during this ER visit?: No
Discharge Problem:
Complication, blocked Douglas catheter
Instructions: How to Care for Your Douglas Catheter, Male
Prescriptions:
No Action
acetaminophen 325 mg Tablet
650 mg PO Q6H
Rx Instructions:
@0000,0600,1200,1800
acetaminophen 325 mg Tablet
650 mg PO Q4H PRN (Reason: mild pain/fever>100.4)
lidocaine 4 % Adhesive Patch,Medicated
1 patch TOPICAL DAILY
Rx Instructions:
apply to right knee
atorvastatin 10 mg tablet
10 mg PO DAILY@2029
cyanocobalamin (vitamin B-12) [Vitamin B-12] 1,000 mcg Tablet
1,000 mcg PO DAILY
amlodipine 5 mg tablet
5 mg PO DAILY
magnesium hydroxide [Milk of Magnesia] 400 mg/5 mL Suspension
30 ml PO HS PRN (Reason: constipation)
aspirin 325 mg Tablet,Delayed Release (Dr/Ec)
325 mg PO DAILY
bisacodyl [Dulcolax (bisacodyl)] 10 mg Suppository
10 mg [place] DAILY PRN (Reason: if mom ineffective)
ferrous sulfate 325 mg (65 mg iron) Tablet
325 mg PO DAILY
lisinopril 10 mg tablet
10 mg PO DAILY
docusate sodium 100 mg Capsule
200 mg PO DAILY
gabapentin 100 mg Capsule
300 mg PO Q8H
Rx Instructions:
@0000,0800,1600
albuterol sulfate 90 mcg/actuation HFA aerosol inhaler
2 puff INHALATION R Q6 PRN (Reason: sob)
finasteride 5 mg Tablet
5 mg PO DAILY
diclofenac sodium 1 % Gel
2 g TOPICAL QID
Rx Instructions:
@0830,1330,1830,2230. Apply to right knee and right calf
cholecalciferol (vitamin D3) [Vitamin D3] 50 mcg (2,000 unit) Tablet
50 mcg PO DAILY
PreserVision AREDS-2 250-90-40-1 mg Capsule
1 tab PO BID
famotidine 20 mg Tablet
20 mg PO BID Qty: 0 0RF
Dakin's Solution 0.125 % Solution
1 applic topical DAILY Qty: 0 0RF
Ertapenem [Invanz] 1000 MG
0.9% Sodium Chloride [Nss] 50 ML
120 mls/hr IV DAILY@1200
Ordered By: Sarah Allen MD
Last Taken: Unknown
oxycodone 5 mg Tablet
5 mg PO Q4HPRN PRN (Reason: Moderate Pain) Qty: 7 0RF
miconazole nitrate [Miconazorb AF] 2 % Powder
1 applic topical BIDPRN PRN (Reason: yeasty red skin) Qty: 0 0RF
Santyl 250 unit/gram Ointment
1 applic topical DAILY Qty: 0 0RF
Referrals:
Neel Moscoso DO [Family Provider] -
Alex Aguilera MD [Active] -
Interventions
Interventions:
*Risk Screen - Suicide Last Done: 02/08/24 16:33
*General Assessment Last Done: 02/08/24 16:33
*Neglect/Abuse Screening Last Done: 02/08/24 16:33
ED- Fall Risk Assessment Last Done: 02/08/24 16:40
*ED COVID-19 Vaccine History Last Done: 02/08/24 16:33
EO-Cyoobh-Zfpkedmjfh Assessment Last Done: 02/08/24 16:34
ED-Male Genitourinary Assessment Last Done: 02/08/24 16:34
Discharge Date and Time
Print Language: POLISH
[2024-02-08 18:00] VITALS: BP 171/74
--- NOTE | 2024-02-08 18:20 | CONS.URO ---
Consultation
-
Performing Provider: Peffer
Reason for Consultation: Difficult wren
Medical History
History of Present Illness
83M hx of prostate cancer s/p radiation
bladder cancer s/p TURBT
Known to Dr. Fernandez Boyd
Chronic indwelling wren catheter present apparently due to convenience - no significant retention hx based on last notes
Presents from rehab with difficult wren replacement
ED staff unable to place catheter
Past Medical History
Past Medical History: Other (Prostate cancer, bladder cancer)
Past Surgical History: Urological
Social History
Alcohol: None
Drug: None
Family History
Family History: Reviewed & Not Pertinent
Allergies/Home Medications
Allergies
Allergy/AdvReac Type Severity Reaction Status Date / Time
cefazolin Allergy Rash Verified 02/08/24 16:36
Penicillins Allergy Unknown Verified 02/08/24 16:36
vancomycin Allergy Unknown Verified 02/08/24 16:36
Home Medications
�Medication �Instructions �Recorded �Confirmed �Type
acetaminophen 325 mg tablet 650 mg PO Q4H PRN mild 03/31/23 07/19/23 History
pain/fever>100.4
acetaminophen 325 mg tablet 650 mg PO Q6H Pain 03/31/23 07/19/23 History
albuterol sulfate 90 mcg/actuation 2 puff inhalation R Q6 PRN sob 03/31/23 07/19/23 History
aerosol inhaler
amlodipine 5 mg tablet 5 mg PO DAILY Blood Pressure 03/31/23 07/19/23 History
aspirin 325 mg tablet,delayed 325 mg PO DAILY Blood Clot 03/31/23 07/19/23 History
release Prevention/Tx
atorvastatin 10 mg tablet 10 mg PO DAILY@2030 High 03/31/23 07/19/23 History
Cholesterol
bisacodyl 10 mg rectal suppository 10 mg [place] DAILY PRN if mom 03/31/23 07/19/23 History
(Dulcolax (bisacodyl)) ineffective
cholecalciferol (vitamin D3) 50 50 mcg PO DAILY Supplement 03/31/23 07/19/23 History
mcg (2,000 unit) tablet (Vitamin
D3)
cyanocobalamin (vitamin B-12) 1,000 mcg PO DAILY Supplement 03/31/23 07/19/23 History
1,000 mcg tablet (Vitamin B-12)
diclofenac sodium 1 % topical gel 2 g topical QID Pain 03/31/23 07/19/23 History
docusate sodium 100 mg capsule 200 mg PO DAILY Constipation 03/31/23 07/19/23 History
ferrous sulfate 325 mg (65 mg 325 mg PO DAILY Supplement 03/31/23 07/19/23 History
iron) tablet
finasteride 5 mg tablet 5 mg PO DAILY Urinary Issue 03/31/23 07/19/23 History
gabapentin 100 mg capsule 300 mg PO Q8H Pain 03/31/23 07/19/23 History
lidocaine 4 % topical patch 1 patch topical DAILY Pain 03/31/23 07/19/23 History
lisinopril 10 mg tablet 10 mg PO DAILY Blood Pressure 03/31/23 07/19/23 History
magnesium hydroxide 400 mg/5 mL 30 ml PO HS PRN constipation 03/31/23 07/19/23 History
oral suspension (Milk of Magnesia)
vit C 250 mg-vit E 90 mg-zinc 40 1 tab PO BID Supplement 03/31/23 07/19/23 History
mg-copper 1 [id number]-hdskee
capsule (PreserVision AREDS-2)
famotidine 20 mg tablet 20 mg PO BID #0 tabs 04/05/23 07/19/23 Rx
Ertapenem [Invanz] 1,000 mg 120 mls/hr IV DAILY@1200 07/23/23 Rx
collagenase clostridium histo. 250 1 applic topical DAILY #0 grams 07/23/23 Rx
unit/gram topical ointment (Santyl)
miconazole nitrate 2 % topical 1 applic topical BIDPRN PRN yeasty 07/23/23 Rx
powder (Miconazorb AF) red skin #0 grams
oxycodone 5 mg tablet 5 mg PO Q4HPRN PRN Moderate Pain 07/23/23 Rx
#7 tabs
sodium hypochlorite 0.125 % 1 applic topical DAILY #0 mL 07/23/23 Rx
solution (Dakin's Solution)
Physical Exam
Vital Signs
Vital Signs
Temp Pulse Resp BP Pulse Ox
97.9 F 60 18 145/70 99
02/08/24 16:35 02/08/24 16:35 02/08/24 16:35 02/08/24 17:00 02/08/24 17:15
Physical Exam
General: Well Developed, Well Nourished and No Apparent Distress
Respiratory: Non Labored Respirations
GI: Soft and Non Tender
Genito-urinary: Other (ventral penile erosion from wren)
Skin: Warm and Dry
Neuro: AO x 3
Psych: Calm and Intact Judgement
Assessment / Plan
-
83M with prostate cancer s/p radiation, bladder cancer
from rehab with difficult wren
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
Cystoscopy at bedside required to confirm access to bladder
Urethra dilated to 18Fr with Bren[place] dilators
16Fr [place] tip wren placed over wire with light pink urine
Okay to resume routine wren change in 4 weeks, 16Fr [address]
Follow up with me or regular urologist - may need to consider SP tube but given bladder cancer history not clear if this is a good idea
[2024-02-08 18:34] VITALS: BMI 24.3
[2024-02-08] MEDS: INVANZ 60 MG IV (19:11)
== END 2024-02-08 20:33 | disposition home or self-care (01) ==
LOC: EMR 16:29
PROVIDERS: EMERGENCY PHYSICIAN Emergency Medicine; FAMILY PHYSICIAN Student in an Organized Health Care Education/Training Program
DX: T83.091A Other mechanical complication of indwelling urethral catheter, initial encounter (principal); Y84.6 Urinary catheterization as the cause of abnormal reaction of the patient, or of later complication, without mention of misadventure at the time of the procedure; Y73.1 Therapeutic (nonsurgical) and rehabilitative gastroenterology and urology devices associated with adverse incidents
CPT/HCPCS: 99284; 96365; 51702; 81003; 81015; 87086; 99285; J1335

== ENCOUNTER → 2024-02-24 12:17 | Outpatient (REF) | payer OTHER, SELFPAY ==
[2024-02-24 12:53] LABS: Urine Albumin 2+ (Neg - Trace); Urine Bilirubin Negative (Negative); Urine Character Very Cloudy (Clear); Urine Color Brown; Urine Glucose Negative (Negative); Urine Ketone Trace (Negative); Urine Leukocyte 2+ (Negative); Urine Nitrite Positive (Negative); Urine Occult Blood 4+ (Negative); Urine Urobilinogen Negative (Neg - 1+)
[2024-02-24 14:23] LABS: Urine Bacteria Many (Negative)
[2024-02-24 14:24] LABS: Urine Red Blood Cell 26-30 /HPF (0-2); Urine White Cell 70-80 /HPF (0-5)
== END ==
LOC: OLABN 12:17
PROVIDERS: ATTENDING PHYSICIAN Student in an Organized Health Care Education/Training Program
DX: R31.9 Hematuria, unspecified (principal)
CPT/HCPCS: 81003; 81015; 87086

== ENCOUNTER → 2024-02-26 07:33 | Outpatient (REF) | payer OTHER, SELFPAY ==
[2024-02-26 10:46] LABS: Urine Albumin 1+ (Neg - Trace); Urine Bilirubin Negative (Negative); Urine Character Slightly Cloudy (Clear); Urine Color Yellow; Urine Glucose Negative (Negative); Urine Ketone Negative (Negative); Urine Leukocyte 2+ (Negative); Urine Nitrite Positive (Negative); Urine Occult Blood 4+ (Negative); Urine Specific Gravity 1.015 (<1.030); Urine Urobilinogen Negative (Neg - 1+)
[2024-02-26 10:56] LABS: Urine Red Blood Cell >100 /HPF (0-2); Urine Squamous Cell 0-2 /LPF (Few)
[2024-02-26 10:57] LABS: Urine Bacteria Many (Negative); Urine White Cell 21-25 /HPF (0-5)
== END ==
LOC: OLABN 07:33
PROVIDERS: ATTENDING PHYSICIAN Student in an Organized Health Care Education/Training Program
DX: R31.9 Hematuria, unspecified (principal)
CPT/HCPCS: 81003; 81015; 87077; 87086; 87186

== ENCOUNTER → 2024-02-29 10:50 | Outpatient (REF) | payer OTHER, SELFPAY ==
[2024-02-29 11:27] LABS: % Basophils 0.3 % (0-2); % Eosinophils 3.7 % (0-6); % Immature Granulocytes 0.5 % (0-0.5); % Lymphocytes 16.4 % (20.5-51.1); % Monocytes 15.2 % (1.7-9.3); % Neutrophils 63.9 % (42.2-75.2); Absolute Eosinophils 0.2 10^3/uL (0-0.7); Absolute Monocytes 0.9 10^3/uL (0.1-0.6); Absolute Neutrophils 3.8 10^3/uL (1.4-6.5); Hematocrit 34.4 % (39.0-52.0); Hemoglobin 10.9 g/dL (13.0-18.0); Mean Corp Hgb Conc. 31.7 g/dL (33.0-37.0); Mean Corpuscular Hgb 29.5 pg (27.0-31.0); Mean Platelet Volume 11.2 fL (7.4-10.4); Nucleated Red Blood Cells % 0 % (-); Platelet Count 185 10^3/uL (130-400)
== END ==
LOC: OLABN 10:50
PROVIDERS: ATTENDING PHYSICIAN Student in an Organized Health Care Education/Training Program
DX: D64.9 Anemia, unspecified (principal)
CPT/HCPCS: 36415; 85025

== ENCOUNTER 2024-03-03 14:08 | Emergency (ER) | payer OTHER, SELFPAY ==
[2024-03-03 14:17] VITALS: BP 110/53
--- NOTE | 2024-03-03 15:02 | ED.GENMED ---
History of Present Illness
General
Chief Complaint: Male Genito-Urinary Symptoms
Source: patient and records
Exam Limitations: none
Time Seen by Provider: 03/03/24 14:47
History of Present Illness
History of Present Illness:
This is an 83-year-old male with a ongoing indwelling Douglas catheter. Catheter was replaced here February 07. 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 Has been passing stool via his urethra. This is been going on
for weeks. Patient was sent to the hospital today from [facility] because of this issue. However patient denies any acute issues that have not been going on for weeks. Denies abdominal pain fever chills blocked Douglas catheter etc.
Past History
Past History
ED Past Medical History: COPD, HTN, Hypercholesterolemia and Other (Chronic Douglas catheter)
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
Social History
Tobacco: Former smoker
Living: assisted living
Review of Systems
Review of Systems
All Other Systems: Not applicable
Constitutional: Denies fever or chills
Phy Exam
Physical Exam
Physical Exam:
GENERAL: Alert and oriented in no apparent distress
EYE: Orbits normal.
NECK: Supple
CARDIAC: Regular rate and rhythm without any obvious murmurs.
LUNGS: Clear breath sounds,normal. Occasional coarse cough which apparently is chronic
ABDOMEN: Soft, without focal tenderness or distention
NEUROLOGICAL: Alert and oriented , grossly non-focal
: Douglas in place. Catheter is functioning with moderate red wine colored urine. Some fecal material in his diaper near his genitalia area and appears to be a small amount of stool in the suburethral area. The urethra has been eroded over time.
SKIN: Warm and dry, no rash or lesion, no discoloration, skin intact.
MUSCULOSKELETAL: Left BKA
PSYCH: Normal and appropriate interaction.
Course
Orders/Labs/Results
Orders:
Orders
03/03/24 16:09
IV Insert/Care/Rem.- Treatment PRN
03/03/24 16:22
Complete Blood Count/With Diff Urgent
Comprehensive Metabolic Panel Urgent
Abnormal Lab Results
03/03/24
16:22
RBC 3.77 L 10^6/uL
(4.70-6.10)
Hgb 11.4 L g/dL
(13.0-18.0)
Hct 36.1 L %
(39.0-52.0)
MCV 95.8 H fL
(80.0-94.0)
MCHC 31.6 L g/dL
(33.0-37.0)
RDW 14.8 H %
(11.5-14.5)
Absolute Lymphs (auto) 0.6 L 10^3/uL
(1.2-3.4)
Absolute Monos (auto) 0.7 H 10^3/uL
(0.1-0.6)
Neutrophils % 75.6 H %
(42.2-75.2)
Lymphocytes % 7.9 L %
(20.5-51.1)
Monocytes % 10.0 H %
(1.7-9.3)
Chloride 108 H mmol/L
(98-107)
BUN 32 H mg/dl
(9-20)
Glucose 121 H mg/dl
(70-99)
03/03/24 16:22
03/03/24 16:22
Vital Signs
Initial and Last Documented VS:
Initial Vital Signs
Temp Pulse Resp BP Pulse Ox
96.6 F L 72 18 110/53 96
03/03/24 14:17 03/03/24 14:17 03/03/24 14:17 03/03/24 14:17 03/03/24 14:17
Last Documented Vital Signs
Temp Pulse Resp BP Pulse Ox
97.9 F 69 18 140/65 97
03/03/24 20:34 03/03/24 20:34 03/03/24 14:17 03/03/24 20:34 03/03/24 20:34
MDM/Problems Addressed
Differential Diagnosis Includes:
Patient with a rectovesicular fistula. This apparently is been known for a couple weeks. Unsure what his change today to warrant immediate emergency department evaluation. Patient states he feels great he denies abdominal pain fever chills or
other complaints. However we are researching this with a discussion to patient's daughter, call was placed to patient's surgeon and we will also contact the facility to try to gather more information
*Critical Care Note
Total Time (30-74mins, 75-104mins- exclusive of procedures): Not Applicable
Data Reviewed
Review of Other/Old Records Reveals: Labs, Records and Testing
Update Note
Update Note:
Reviewed with colorectal(Dr Fountain). With no clinical findings to support sepsis, patient nontoxic. No indication for workup in the hospital. Clearly has a fistula. This has been ongoing. Outpatient follow-up and management. There would be no
benefit to keeping him in the hospital at this point. I did try multiple times to get hold of his daughter with no success. Patient wants to leave
ED Attending Note
-
Portions of this chart may have been created with voice recognition software.� Occasional wrong word or��sound alike� substitutions may have occurred due to the inherent limitations of voice recognition software.
Discharge Plan
Departure
Patient Disposition: Home (Routine Discharge)
Date of Disposition: 03/03/24
Time of Disposition: 17:58
Patient with high blood pressure during this ER visit?: No
Discharge Problem:
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
Prescriptions:
No Action
acetaminophen 325 mg Tablet
650 mg PO Q6H
Rx Instructions:
@0000,0600,1200,1800
acetaminophen 325 mg Tablet
650 mg PO Q4H PRN (Reason: mild pain/fever>100.4)
lidocaine 4 % Adhesive Patch,Medicated
1 patch TOPICAL DAILY
Rx Instructions:
apply to right knee
atorvastatin 10 mg tablet
10 mg PO DAILY@2029
cyanocobalamin (vitamin B-12) [Vitamin B-12] 1,000 mcg Tablet
1,000 mcg PO DAILY
amlodipine 5 mg tablet
5 mg PO DAILY
magnesium hydroxide [Milk of Magnesia] 400 mg/5 mL Suspension
30 ml PO HS PRN (Reason: constipation)
aspirin 325 mg Tablet,Delayed Release (Dr/Ec)
325 mg PO DAILY
bisacodyl [Dulcolax (bisacodyl)] 10 mg Suppository
10 mg [place] DAILY PRN (Reason: if mom ineffective)
ferrous sulfate 325 mg (65 mg iron) Tablet
325 mg PO DAILY
lisinopril 10 mg tablet
10 mg PO DAILY
docusate sodium 100 mg Capsule
200 mg PO DAILY
gabapentin 100 mg Capsule
300 mg PO Q8H
Rx Instructions:
@0000,0800,1600
albuterol sulfate 90 mcg/actuation HFA aerosol inhaler
2 puff INHALATION R Q6 PRN (Reason: sob)
finasteride 5 mg Tablet
5 mg PO DAILY
diclofenac sodium 1 % Gel
2 g TOPICAL QID
Rx Instructions:
@0830,1330,1830,2230. Apply to right knee and right calf
cholecalciferol (vitamin D3) [Vitamin D3] 50 mcg (2,000 unit) Tablet
50 mcg PO DAILY
PreserVision AREDS-2 250-90-40-1 mg Capsule
1 tab PO BID
famotidine 20 mg Tablet
20 mg PO BID Qty: 0 0RF
Dakin's Solution 0.125 % Solution
1 applic topical DAILY Qty: 0 0RF
Ertapenem [Invanz] 1000 MG
0.9% Sodium Chloride [Nss] 50 ML
120 mls/hr IV DAILY@1200
Ordered By: Sarah Allen MD
Last Taken: Unknown
oxycodone 5 mg Tablet
5 mg PO Q4HPRN PRN (Reason: Moderate Pain) Qty: 7 0RF
miconazole nitrate [Miconazorb AF] 2 % Powder
1 applic topical BIDPRN PRN (Reason: yeasty red skin) Qty: 0 0RF
Santyl 250 unit/gram Ointment
1 applic topical DAILY Qty: 0 0RF
Referrals:
Yaw Fountain MD [Active] - Follow up in 5-7 days
Neel Moscoso DO [Family Provider] - Follow up in 2-3 days
Activity Restrictions/Additional Instructions:
I gave you the number of our colorectal surgeon. He is the one we discussed your case with.
No indication for admission or any workup at this time. However this will require a further workup and likely planned outpatient surgery.
I would highly recommend calling his office or if your urologist wants to you to use a colorectal surgeon directly at [facility] that is fine. However I would call them first thing Wednesday morning to arrange close follow-up.
If you develop new other symptoms, specifically fever abdominal pain vomiting or any other new concerning symptoms, return immediately.
Interventions
Interventions:
*Risk Screen - Suicide Last Done: 03/03/24 14:12
*General Assessment Last Done: 03/03/24 14:12
*Neglect/Abuse Screening Last Done: 03/03/24 14:12
*ED COVID-19 Vaccine History Last Done: 03/03/24 14:12
ED-Male Genitourinary Assessment Last Done: 03/03/24 15:30
Discharge Date and Time
Print Language: FINNISH
[2024-03-03 16:33] LABS: % Basophils 0.3 % (0-2); % Eosinophils 5.8 % (0-6); % Immature Granulocytes 0.4 % (0-0.5); % Lymphocytes 7.9 % (20.5-51.1); % Neutrophils 75.6 % (42.2-75.2); Absolute Eosinophils 0.4 10^3/uL (0-0.7); Absolute Lymphocytes 0.6 10^3/uL (1.2-3.4); Absolute Monocytes 0.7 10^3/uL (0.1-0.6); Absolute Neutrophils 5.4 10^3/uL (1.4-6.5); Hematocrit 36.1 % (39.0-52.0); Hemoglobin 11.4 g/dL (13.0-18.0); Mean Corp Hgb Conc. 31.6 g/dL (33.0-37.0); Mean Corpuscular Hgb 30.2 pg (27.0-31.0); Mean Corpuscular Volume 95.8 fL (80.0-94.0); Mean Platelet Volume 10.3 fL (7.4-10.4); Nucleated Red Blood Cells % 0 % (-); Platelet Count 157 10^3/uL (130-400); Red Blood Cell Count 3.77 10^6/uL (4.70-6.10); Red Cell Dist. Width 14.8 % (11.5-14.5); White Blood Cell Count 7.1 10^3/uL (4.8-10.8)
[2024-03-03 16:50] LABS: ALT (SGPT) 14 U/L (0-50); AST (SGOT) 21 U/L (17-59); Albumin 3.5 g/dl (3.5-5.0); Alkaline Phosphatase 103 U/L (38-126); Blood Urea Nitrogen 32 mg/dl (9-20); Calcium 9.3 mg/dl (8.4-10.2); Carbon Dioxide 23 mmol/L (22-30); Chloride 108 mmol/L (98-107); Glucose 121 mg/dl (70-99); Potassium 4.5 mmol/L (3.5-5.1); Sodium 143 mmol/L (135-145); Total Bilirubin 0.4 mg/dl (0.2-1.3); Total Protein 6.3 g/dl (6.3-8.2); eGFR > 60.00
[2024-03-03 20:34] VITALS: BP 140/65
== END 2024-03-03 22:39 | disposition home or self-care (01) ==
LOC: EMR 14:08
PROVIDERS: EMERGENCY PHYSICIAN Emergency Medicine; FAMILY PHYSICIAN Student in an Organized Health Care Education/Training Program
DX: Z46.6 Encounter for fitting and adjustment of urinary device (principal); R05.9 Cough, unspecified; I10 Essential (primary) hypertension; E78.00 Pure hypercholesterolemia, unspecified; J44.9 Chronic obstructive pulmonary disease, unspecified; Z79.82 Long term (current) use of aspirin; Z89.512 Acquired absence of left leg below knee; Z87.891 Personal history of nicotine dependence; Z88.1 Allergy status to other antibiotic agents; Z88.0 Allergy status to penicillin
CPT/HCPCS: 99283; 80053; 85025

== ENCOUNTER → 2024-03-15 11:51 | Outpatient (REF) | payer OTHER, SELFPAY | LOC: RAD 11:51 | PROVIDERS: ATTENDING PHYSICIAN Student in an Organized Health Care Education/Training Program | DX: Z85.46 Personal history of malignant neoplasm of prostate (principal) | CPT/HCPCS: 74176 ==

== ENCOUNTER → 2024-08-03 15:21 | Outpatient (REF) | payer OTHER, SELFPAY | LOC: RAD 15:21 | PROVIDERS: ATTENDING PHYSICIAN Student in an Organized Health Care Education/Training Program | DX: C67.1 Malignant neoplasm of dome of bladder (principal) | CPT/HCPCS: 74176 ==

== ENCOUNTER → 2024-09-05 08:08 | Outpatient (REF) | payer OTHER, SELFPAY | LOC: RAD 08:08 | PROVIDERS: ATTENDING PHYSICIAN Surgery Vascular Surgery; FAMILY PHYSICIAN Student in an Organized Health Care Education/Training Program | DX: I73.9 Peripheral vascular disease, unspecified (principal) | CPT/HCPCS: 93922; 93925 ==

== ENCOUNTER → 2024-09-14 16:13 | Outpatient (REF) | payer OTHER, SELFPAY ==
[2024-09-14 17:33] LABS: Blood Urea Nitrogen 34 mg/dl (9-20); Calcium 9.5 mg/dl (8.4-10.2); Carbon Dioxide 23 mmol/L (22-30); Chloride 112 mmol/L (98-107); Glucose 113 mg/dl (70-99); Potassium 4.7 mmol/L (3.5-5.1); Sodium 146 mmol/L (135-145); eGFR > 60.00
== END ==
LOC: OLABN 16:13
PROVIDERS: ATTENDING PHYSICIAN Student in an Organized Health Care Education/Training Program
DX: I73.9 Peripheral vascular disease, unspecified (principal)
CPT/HCPCS: 36415; 80048

== ENCOUNTER → 2024-09-20 13:01 | Outpatient (REF) | payer OTHER, SELFPAY | LOC: RAD 13:01 | PROVIDERS: ATTENDING PHYSICIAN Physician Assistant; FAMILY PHYSICIAN Student in an Organized Health Care Education/Training Program | DX: I73.9 Peripheral vascular disease, unspecified (principal) | CPT/HCPCS: 75635; Q9967 ==

== ENCOUNTER → 2024-12-18 10:25 | Outpatient (REF) | payer OTHER, SELFPAY ==
[2024-12-18 11:53] LABS: ALT (SGPT) 16 U/L (0-50); AST (SGOT) 18 U/L (17-59); Albumin 3.5 g/dl (3.5-5.0); Alkaline Phosphatase 99 U/L (38-126); Blood Urea Nitrogen 23 mg/dl (9-20); Calcium 9.5 mg/dl (8.4-10.2); Carbon Dioxide 22 mmol/L (22-30); Chloride 113 mmol/L (98-107); Glucose 92 mg/dl (70-99); Potassium 4.3 mmol/L (3.5-5.1); Sodium 141 mmol/L (135-145); Total Bilirubin 0.5 mg/dl (0.2-1.3); Total Protein 6.3 g/dl (6.3-8.2); eGFR > 60.00
== END ==
LOC: OLABN 10:25
PROVIDERS: ATTENDING PHYSICIAN Student in an Organized Health Care Education/Training Program
DX: I10 Essential (primary) hypertension (principal); E78.5 Hyperlipidemia, unspecified
CPT/HCPCS: 36415; 80053

== ENCOUNTER → 2024-12-27 13:13 | Outpatient (REF) | payer OTHER, SELFPAY | LOC: RAD 13:13 | PROVIDERS: ATTENDING PHYSICIAN Surgery Vascular Surgery; FAMILY PHYSICIAN Student in an Organized Health Care Education/Training Program | DX: I73.9 Peripheral vascular disease, unspecified (principal); Z85.46 Personal history of malignant neoplasm of prostate | CPT/HCPCS: 71260; 74178; 93922; 93925; Q9967 ==

== ENCOUNTER → 2025-04-20 13:50 | Outpatient (REF) | payer OTHER, SELFPAY ==
[2025-04-20 18:14] LABS: Urine Character Cloudy (Clear)
[2025-04-20 18:42] LABS: Urine Squamous Cell 0-2 /LPF (Few)
[2025-04-20 18:43] LABS: Urine Red Blood Cell >100 /HPF (0-2)
== END ==
LOC: OLABN 13:50
PROVIDERS: ATTENDING PHYSICIAN Student in an Organized Health Care Education/Training Program
DX: R31.9 Hematuria, unspecified (principal)
CPT/HCPCS: 81003; 81015; 87077; 87086; 87186

== ENCOUNTER 2025-06-17 13:30 | Emergency (ER) | payer OTHER, SELFPAY ==
[2025-06-17 13:31] VITALS: BP 147/64
--- NOTE | 2025-06-17 16:01 | ED.GENMED ---
History of Present Illness
General
Chief Complaint: Catheter/Tube Problem
Time Seen by Provider: 06/17/25 15:54
History of Present Illness
History of Present Illness:
Zachary is an 84-year-old male with past medical history of return of bladder status post suprapubic catheter placement, frequent UTIs, hypertension who presents from SNF after his suprapubic catheter became dislodged last night and was replaced with
a 14 [place] catheter. Previously had an 18 [place] catheter. Reportedly catheter was leaking at the skin and SNF sentiment for catheter change. However patient denies any leakage from the skin and there is no evidence of any leaking currently.
Bag is full of clear yellow urine. Patient has absolutely no complaints.
Past History
Past History
ED Past Medical History: COPD, HTN, Hypercholesterolemia and Other (Chronic Douglas catheter)
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
Social History
Tobacco: Former smoker
Living: assisted living
Phy Exam
Physical Exam
Physical Exam:
GENERAL: Alert and oriented in no apparent distress
EYE: Orbits normal.
NECK: Supple
CARDIAC: Regular rate and rhythm without any obvious murmurs.
LUNGS: Clear breath sounds,normal.
ABDOMEN: Soft, without focal tenderness or distention
NEUROLOGICAL: Alert and oriented , grossly non-focal
: Suprapubic catheter in place, no leakage at skin site and bag filled with clear yellow urine
SKIN: Warm and dry, no rash or lesion, no discoloration, skin intact.
MUSCULOSKELETAL: Left BKA
PSYCH: Normal and appropriate interaction.
Course
Vital Signs
Initial and Last Documented VS:
Initial Vital Signs
Temp Pulse Resp BP Pulse Ox
36.8 C 59 19 147/64 100
06/17/25 13:31 06/17/25 13:31 06/17/25 13:31 06/17/25 13:31 06/17/25 13:31
Last Documented Vital Signs
Temp Pulse Resp BP Pulse Ox
36.8 C 59 19 147/64 100
06/17/25 13:31 06/17/25 13:31 06/17/25 13:31 06/17/25 13:31 06/17/25 13:31
MDM/Problems Addressed
Differential Diagnosis Includes:
Catheter appears to be functioning appropriately. No evidence of urine leakage at the skin. There was a 4 x 4 drain sponge around the catheter which is dry. No indication to send UA as urine is clear yellow with no sediment. Urinalysis would be
likely contaminated in the setting of chronic catheter. Patient is unsure why SNF sent him in as he has no complaints. Will discharge him back to [facility]. No indication to switch catheter as it appears to be functioning as intended.
*Pulse Oximetry
SaO2: 100
Oxygen Mode of Delivery: Room air
Patient hypoxic: no
*Critical Care Note
Total Time (30-74mins, 75-104mins- exclusive of procedures): Not Applicable
ED Attending Note
-
Portions of this chart may have been created with voice recognition software.� Occasional wrong word or��sound alike� substitutions may have occurred due to the inherent limitations of voice recognition software.
Discharge Plan
Departure
Patient Disposition: Home (Routine Discharge)
Date of Disposition: 06/17/25
Time of Disposition: 16:01
Patient with high blood pressure during this ER visit?: No
Discharge Problem:
Chronic suprapubic catheter
Prescriptions:
No Action
acetaminophen 325 mg Tablet
650 mg PO Q6H
Rx Instructions:
@0000,0600,1200,1800
acetaminophen 325 mg Tablet
650 mg PO Q4H PRN (Reason: mild pain/fever>100.4)
lidocaine 4 % Adhesive Patch,Medicated
1 patch TOPICAL DAILY
Rx Instructions:
apply to right knee
atorvastatin 10 mg tablet
10 mg PO DAILY@2029
cyanocobalamin (vitamin B-12) [Vitamin B-12] 1,000 mcg Tablet
1,000 mcg PO DAILY
amlodipine 5 mg tablet
5 mg PO DAILY
magnesium hydroxide [Milk of Magnesia] 400 mg/5 mL Suspension
30 ml PO HS PRN (Reason: constipation)
aspirin 325 mg Tablet,Delayed Release (Dr/Ec)
325 mg PO DAILY
bisacodyl [Dulcolax (bisacodyl)] 10 mg Suppository
10 mg [place] DAILY PRN (Reason: if mom ineffective)
ferrous sulfate 325 mg (65 mg iron) Tablet
325 mg PO DAILY
lisinopril 10 mg tablet
10 mg PO DAILY
docusate sodium 100 mg Capsule
200 mg PO DAILY
gabapentin 100 mg Capsule
300 mg PO Q8H
Rx Instructions:
@0000,0800,1600
albuterol sulfate 90 mcg/actuation HFA aerosol inhaler
2 puff INHALATION R Q6 PRN (Reason: sob)
finasteride 5 mg Tablet
5 mg PO DAILY
diclofenac sodium 1 % Gel
2 g TOPICAL QID
Rx Instructions:
@0830,1330,1830,2230. Apply to right knee and right calf
cholecalciferol (vitamin D3) [Vitamin D3] 50 mcg (2,000 unit) Tablet
50 mcg PO DAILY
PreserVision AREDS-2 250-90-40-1 mg Capsule
1 tab PO BID
famotidine 20 mg Tablet
20 mg PO BID Qty: 0 0RF
Dakin's Solution 0.125 % Solution
1 applic topical DAILY Qty: 0 0RF
Ertapenem [Invanz] 1000 MG
0.9% Sodium Chloride [Nss] 50 ML
120 mls/hr IV DAILY@1200
Ordered By: Sarah Allen MD
Last Taken: Unknown
oxycodone 5 mg Tablet
5 mg PO Q4HPRN PRN (Reason: Moderate Pain) Qty: 7 0RF
miconazole nitrate [Miconazorb AF] 2 % Powder
1 applic topical BIDPRN PRN (Reason: yeasty red skin) Qty: 0 0RF
Santyl 250 unit/gram Ointment
1 applic topical DAILY Qty: 0 0RF
Activity Restrictions/Additional Instructions:
Catheter is functioning well with no evidence of leakage from site. Urine bag full with clear yellow urine and no evidence of infection. No indication to switch catheter while in the emergency department. Return to the ER if catheter becomes
dislodged and unable to be replaced.
Interventions
Interventions:
*General Assessment Last Done: 06/17/25 13:31
*Neglect/Abuse Screening Last Done: 06/17/25 13:31
[facility] Fall Risk Assessment Tool Last Done: 06/17/25 13:31
*Risk Screen - Suicide (C-SSRS) Last Done: 06/17/25 13:31
ZZ-Imqfoi-Umwshahdwd Assessment Last Done: 06/17/25 15:52
ED-Male Genitourinary Assessment Last Done: 06/17/25 15:52
Discharge Date and Time
Print Language: BURUNDIAN
== END 2025-06-17 17:09 | disposition home or self-care (01) ==
LOC: EMR 13:30
PROVIDERS: EMERGENCY PHYSICIAN Emergency Medicine; FAMILY PHYSICIAN Student in an Organized Health Care Education/Training Program
DX: Z96.0 Presence of urogenital implants (principal); I10 Essential (primary) hypertension; E78.00 Pure hypercholesterolemia, unspecified; J44.9 Chronic obstructive pulmonary disease, unspecified; Z93.59 Other cystostomy status; Z87.440 Personal history of urinary (tract) infections; Z87.891 Personal history of nicotine dependence; Z89.512 Acquired absence of left leg below knee
CPT/HCPCS: 99283